=== PATIENT | female | born 1935 | race Caucasian/White ===

== ENCOUNTER 2018-08-05 23:37 | Inpatient (IN) | payer OTHER ==
--- NOTE | 2018-08-06 00:38 | PDOC ---
History of Present Illness - General Chief Complaint: Revisit, Lab Variance Stated Complaint: ABNORMAL LABS Time Seen by Provider: 08/06/18 00:38 History Source: Patient Exam Limitations: No Limitations - History of Present Illness Initial Comments: Urbano Hernandes is a very pleasant elderly, possibly demented 83 yo F resident of [facility] w a hx of recent UTI, AFIB, iron deficiency anemia, T2DM, hypothyroidism, Normal pressure hydrocephalus, and a stage 1 Sacral ulcer who presents to the ER via [facility] for an abnormal Hb value of 7.55. The patient appears pale in bed. The patient has no active complaints and seems mildly demented. She does not provide much history. She denies any pain. She does admit that she got sick yesterday and vomited 3 times. She says her vomit was "bleh" in color and had no blood or anything in it that looked green. The patient currently has a Line in her right wrist bc she is being treated for a UTI for ten days with meropenem 1 gram BID for an ESBL UTI. The patient denies having any chest pain, SOB, difficulty breathing. She denies vomiting blood, bloody diarrhea or blood in her stool. The patient denies having a headache, neck pain, blurry vision, or back pain. PCP: Dr. Ware PSH: Multiple left leg surgeries Allergies: Penicillins/strawberries Social Hx: Resident of [facility]. No current cigarette, alcohol, or drug usage. Advanced directives: DNR Past History - Past Medical History Allergies/Adverse Reactions: Allergies Allergy/AdvReac Type Severity Reaction Status Date / Time Penicillins Allergy Unknown Verified 08/06/18 02:14 strawberry Allergy Unknown Verified 08/06/18 02:13 Home Medications: Ambulatory Orders Acetaminophen 325 mg PO PRN 08/06/18 Ascorbic Acid [Vitamin C -] 500 mg PO DAILY 08/06/18 Calcium Carbonate/Vitamin D3 [Oyster Shell 500-Vit D3 200 Tb] 1 each PO DAILY Cholecalciferol (Vitamin D3) [Vitamin D3] 1,000 unit PO DAILY 08/06/18 Dextran 70/Hypromellose/Pf [Artificial Tears Drops] 1 each OP PRN 08/06/18 Diltiazem [Cardizem -] 30 mg PO QID 08/06/18 Docusate Sodium 200 mg PO DAILY 08/06/18 Ferrous Sulfate 325 mg PO DAILY 08/06/18 Heparin - 5,000 unit SQ BID 08/06/18 Levothyroxine [Synthroid -] 50 mcg PO DAILY 08/06/18 Meropenem-0.9% Sodium Chloride [Meropenem-0.9% NaCl 1 Gram/50] 1 gm IV BID 08/06 Montelukast Sodium [Singulair] 10 mg PO DAILY 08/06/18 - Suicide/Smoking/Psychosocial Hx Smoking History: Never smoked Have you smoked in the past 12 months: No Information on smoking cessation initiated: No Hx Alcohol Use: No Drug/Substance Use Hx: No Review of Systems - Review of Systems Able to Perform ROS?: No (Dementia) *Physical Exam - Vital Signs Last Vital Signs Temp Pulse Resp BP Pulse Ox 97.3 F L 90 18 143/62 100 08/05/18 23:49 08/05/18 23:49 08/05/18 23:49 08/05/18 23:49 08/05/18 23:49 - Physical Exam Comments: GENERAL: Appears pale. Not very well kept. Has a malodorous scent. No apparent distress. HEENT: Normocephalic, atraumatic. PERRL, EOM intact. CARDIOVASCULAR: Normal S1, S2. Regular rate and rhythm. PULMONARY: No evidence of respiratory distress. Lungs clear to auscultation bilaterally. No wheezing, rales or rhonchi. ABDOMEN: Soft, non-distended, non-tender. EXTREMITIES: Limited ROM in all four extremities. No gross deformities. Line in right wrist. SKIN: Warm, dry. No rash NEUROLOGICAL: No focal neurological deficits. ED Treatment Course - LABORATORY CBC & Chemistry Diagram: 08/06/18 01:33 08/06/18 01:33 Medical Decision Making - Medical Decision Making Urbano Hernandes is a very pleasant elderly, possibly demented 83 yo F resident of [facility] a hx of recent UTI, AFIB, iron deficiency anemia, T2DM, hypothyroidism, Normal pressure hydrocephalus, and a stage 1 Sacral ulcer who presents to the ER via [facility] for an abnormal Hb value of 7.55. The patient appears pale in bed. The patient has no active complaints and seems mildly demented. She does not provide much history. She denies any pain. She does admit that she got sick yesterday and vomited 3 times. She says her vomit was "bleh" in color and had no blood or anything in it that looked green. The patient currently has a Line in her right wrist bc she is being treated for a UTI for ten days with meropenem 1 gram BID for an ESBL UTI. Vital Signs Temp Pulse Resp BP Pulse Ox 97.3 F L 90 18 143/62 100 08/05/18 23:49 08/05/18 23:49 08/05/18 23:49 08/05/18 23:49 08/05/18 23:49 DDx IBNLT: Anemia - iron deficiency most likely, electrolyte/metabolic disturbance, medication side effect, PNA, UTI, ACS/Mi, Arrhythmia, GI bleed Plan: Labs, Urine, FOBT, CXR, EKG, Admit to hospital for anemia workup. Hb - 8 FOBT - positive - Giving patient one dose of protonix in ED. Signing out patient to Dr. Begum to complete admission to hospital *DC/Admit/Observation/Transfer Diagnosis at time of Disposition: Anemia, Occult GI bleeding - Discharge Dispostion Condition at time of disposition: Stable Decision to Admit order: Yes - Referrals Referrals: Jose Ware MD [Primary Care Provider] - - Patient Instructions - Post Discharge Activity
[2018-08-06] MEDS ORDERED: SODIUM CHLORIDE 1,000 ML IV STA (00:52)
[2018-08-06 01:57] LABS: BASO % 0.6 % (0-2.0); EOS % 4.7 % (0-4.5); HEMATOCRIT 25.6 % (32.4-45.2); LYMPH % 23.8 % (8-40); MCH 23.9 pg (25.7-33.7); MCHC 31.2 g/dl (32.0-36.0); MEAN CELL VOLUME 76.6 fl (80-96); MEAN PLT VOLUME 7.5 fl (7.5-11.1); MONO % 10.7 % (3.8-10.2); NEUT % 60.2 % (42.8-82.8); PLATELET COUNT 350 K/MM3 (134-434); RBC 3.34 M/mm3 (3.60-5.2); RDW 15.6 % (11.6-15.6); RETICULOCYTES 1.14 % (0.5-1.5); WHITE BLOOD COUNT 6.5 K/mm3 (4.0-10.0)
[2018-08-06 02:21] LABS: EPI CELLS 0.6 /HPF (0-5/HPF); HYALINE CASTS 2 /lpf (0-8); PH,URINE 6.5 (5.0-8.0); URINE APPEARANCE CLOUDY; URINE BACTERIA 13.9 /hpf (NEGATIVE); URINE BILIRUBIN NEGATIVE (NEGATIVE); URINE COLOR YELLOW; URINE GLUCOSE (UA) NEGATIVE (NEGATIVE); URINE KETONE NEGATIVE (NEGATIVE); URINE LEUK ESTERASE 2+ (NEGATIVE); URINE NITRITE NEGATIVE (NEGATIVE); URINE PROTEIN NEGATIVE (NEGATIVE); URINE RBC 4 /hpf (0-4); URINE UROBILINOGEN 0.2 mg/dL (0.2-1.0); URINE WBC 273 /hpf (0-5); YEAST REVIEW (NEGATIVE)
[2018-08-06 02:28] LABS: INR 1.08 (0.83-1.09); PROTHROMBIN TIME (PATIENT) 12.7 SEC (9.7-13.0)
[2018-08-06 02:32] LABS: ALBUMIN 3.2 g/dl (3.4-5.0); BILIRUBIN,TOTAL 0.4 mg/dL (0.2-1); BLOOD UREA NITROGEN 25.1 mg/dL (7-18); CALCIUM 8.9 mg/dL (8.5-10.1); CREATININE 1.2 mg/dL (0.55-1.3); POTASSIUM 4.4 mmol/L (3.5-5.1)
[2018-08-06 02:33] LABS: LDH 198 U/L (84-246)
[2018-08-06] MEDS ORDERED: PANTOPRAZOLE SODIUM 40 MG VIAL IVPUSH ONE (02:35)
[2018-08-06] MEDS ORDERED: MEROPENEM 1 GM in DEXTROSE 5%-WATER 100 ML IVPB ONE ×2 (02:47→14:00)
--- NOTE | 2018-08-06 02:47 | PDOC ---
Documentation entered by Samuel Leon SCRIBE, acting as scribe for Fernanda Santiago MD. Fernanda Santiago MD: This documentation has been prepared by the Carolyn astudillo Elijah, SCRIBE, under my direction and personally reviewed by me in its entirety. I confirm that the documentation accurately reflects all work, treatment, procedures, and medical decision making performed by me. Attending Attestation - Resident Resident Name: Jarod Horvath - ED Attending Attestation I have performed the following: I have examined & evaluated the patient, The case was reviewed & discussed with the resident, I agree w/resident's findings & plan - HPI HPI: 08/06/18 01:08 The patient is an 83 year old female with a significant past medical history of recent UTI, AFIB, iron deficiency anemia, T2DM, hypothyroidism, Normal pressure hydrocephalus, and a Sacral ulcer presents to the ED via [facility] with an abnormal Hb value of 7.5. The patient reports vomiting three times yesterday and mentioned that it was green in color. At this moment in time the patient has no complaints. Patient is currently being treated for a UTI with meropenem 1 gram BID from [facility]. history mostly obtained through residential records. Allergies: Penicillins/strawberries Past Medical History: as documented in EMR/HPI Social history: Lives in [facility] . No tobacco, ETOH or drug use. Surgical history: Left leg Surgeries Meds: as documented in EMR PMD: Dr. Ware 08/06/18 02:46 - Physicial Exam PE: 08/06/18 02:45 Agree with the resident's HPI and PE as documented in the electronic medical record. NAD, alert, oriented to person time and place. EOMI, PERRL, nl conjunctiva, anicteric; neck supple. lungs clear, RRR, abdomen soft nontender. Back nontender. COLBY x4, no focal neuro deficits. No peripheral edema. normal color for ethnicity, WWP. 08/06/18 02:45 - Medical Decision Making 08/06/18 02:46 See HPI for details. Prior notes reviewed, including admissions, discharges and consultations. Vital signs reviewed, wnl. laboratory results and imaging reviewed, basic labs and lytes wnl, notable for anemia, Hb 8 guaiac positive, ?occult GIB Cardiac panel_neg ED course no events, no bleeding admit for Anemia workup. meropenem given for the ESBL UTI 08/06/18 09:28
[2018-08-06] MEDS ORDERED: PANTOPRAZOLE SODIUM 40 MG/100 ML BAG IVPB ONE (02:52)
--- NOTE | 2018-08-06 03:55 | PDOC ---
*Physical Exam - Vital Signs Last Vital Signs Temp Pulse Resp BP Pulse Ox 97.3 F L 90 18 143/62 97 08/05/18 23:49 08/05/18 23:49 08/05/18 23:49 08/05/18 23:49 08/06/18 01:36 - Physical Exam General Appearance: Yes: Nourished, Appropriately Dressed, Other (Ple) HEENT: positive: EOMI, TANI Neck: positive: Supple Respiratory/Chest: positive: Lungs Clear, Normal Breath Sounds. negative: Accessory Muscle Use Cardiovascular: positive: Regular Rhythm, Regular Rate, S1, S2 Gastrointestinal/Abdominal: positive: Normal Bowel Sounds, Soft Extremity: negative: Swelling Neurologic: positive: inspector balance bridge II-XII NML intact, Alert ED Treatment Course - LABORATORY CBC & Chemistry Diagram: 08/06/18 01:33 08/06/18 01:33 - ADDITIONAL ORDERS Additional order review: Laboratory Results 08/06/18 08/06/18 08/06/18 02:05 01:33 01:33 PT with INR INR Sodium Potassium Chloride Carbon Dioxide Anion Gap BUN Creatinine Est GFR (CKD-EPI)AfAm Est GFR (CKD-EPI)NonAf Random Glucose Calcium Ferritin Total Bilirubin AST ALT Alkaline Phosphatase LD Total 198 Creatine Kinase 52 Troponin I < 0.02 Total Protein Albumin TSH 2.11 Urine Color Yellow Urine Appearance Cloudy Urine pH 6.5 Ur Specific [place] 1.018 Urine Protein Negative Urine Glucose (UA) Negative Urine Ketones Negative Urine Blood Negative Urine Nitrite Negative Urine Bilirubin Negative Urine Urobilinogen 0.2 Ur Leukocyte Esterase 2+ H Urine WBC (Auto) 273 Urine RBC (Auto) 4 Urine Casts (Auto) 2 U Epithel Cells (Auto) 0.6 Urine Bacteria (Auto) 13.9 Urine Yeast (Auto) Review A* Stool Occult Blood Blood Type O POSITIVE Antibody Screen Negative 08/06/18 08/06/18 08/06/18 01:33 01:33 01:33 PT with INR 12.70 INR 1.08 Sodium 141 Potassium 4.4 Chloride 109 H Carbon Dioxide 28 Anion Gap 4 L BUN 25.1 H Creatinine 1.2 Est GFR (CKD-EPI)AfAm 48.06 Est GFR (CKD-EPI)NonAf 41.47 Random Glucose 97 Calcium 8.9 Ferritin 12.9 Total Bilirubin 0.4 AST 151 H ALT 242 H Alkaline Phosphatase 98 LD Total Creatine Kinase Troponin I Total Protein 7.0 Albumin 3.2 L TSH Urine Color Urine Appearance Urine pH Ur Specific [place] Urine Protein Urine Glucose (UA) Urine Ketones Urine Blood Urine Nitrite Urine Bilirubin Urine Urobilinogen Ur Leukocyte Esterase Urine WBC (Auto) Urine RBC (Auto) Urine Casts (Auto) U Epithel Cells (Auto) Urine Bacteria (Auto) Urine Yeast (Auto) Stool Occult Blood Positive Blood Type Antibody Screen 08/06/18 01:33 RBC 3.34 L MCV 76.6 L MCHC 31.2 L RDW 15.6 MPV 7.5 Neutrophils % 60.2 Lymphocytes % 23.8 Monocytes % 10.7 H Eosinophils % 4.7 H Basophils % 0.6 - Medications Given in the ED: ED Medications Discontinued Medications Generic Name Dose Route Start Last Admin Trade Name Freq PRN Reason Stop Dose Admin Sodium Chloride 1,000 mls @ 1,000 mls/hr 08/06/18 00:52 08/06/18 02:09 Normal Saline - IV 08/06/18 01:51 1,000 mls/hr ASDIR STA Administration Pantoprazole Sodium 40 mg 08/06/18 02:35 08/06/18 02:55 Protonix Iv IVPUSH 08/06/18 02:36 40 mg ONCE ONE Administration Medical Decision Making - Medical Decision Making 08/06/18 03:51 83 y/o F resident of [facility] PMHx of recent UTI (on meropenem), AFib, iron deficiency anemia, T2DM, hypothyroidism, NPH, and stage 1 Sacral ulcer who presents for an abnormal Hgb Level (7.55). Pale on exam, mildly demented. VSS Stable. Found to be FOBT+, Hgb 8.0 Given 1 dose PPI, 1LNS Bolus. Sign out given to Dr. Young Chandler *DC/Admit/Observation/Transfer Diagnosis at time of Disposition: Anemia, Occult GI bleeding - Discharge Dispostion Condition at time of disposition: Stable - Referrals Referrals: Jose Ware MD [Primary Care Provider] - - Patient Instructions - Post Discharge Activity
--- NOTE | 2018-08-06 04:20 | HP ---
CHIEF COMPLAINT: Anemia. Sent from [place]. PCP: Dr Ware HISTORY OF PRESENT ILLNESS: Pt is an 83 y/o F with a significant past medical history of UTI, AFIB, iron deficiency anemia, T2DM, hypothyroidism, Normal pressure hydrocephalus, and a stage 1 Sacral ulcer who was sent from [facility] to [facility] due to 3 episodes of vomiting as well as a hemoglobin level of 7.55. Pt appears to be a poor historian and information is limited. Pt is reportedly being treated currently for an ESBL UTI; pt has a PICC line. Upon questioning patient, pt denies any chest pain, shortness of breath, or recent illness. PCP: Dr. Ware PSH: Multiple left leg surgeries Allergies: Penicillins/strawberries Social Hx: Resident of [facility]. No current cigarette, alcohol, or drug usage. ER course was notable for: (1) Hg of 8.0, 2 + Leuk Esterase (2) FOBT - positive (3) Allergies Penicillins Allergy (Unknown, Verified 08/06/18 02:14) strawberry Allergy (Unknown, Verified 08/06/18 02:13) HOME MEDICATIONS: Home Medications Medication Instructions Recorded Acetaminophen 325 mg PO PRN 08/06/18 Ascorbic Acid [Vitamin C -] 500 mg PO DAILY 08/06/18 Calcium Carbonate/Vitamin D3 1 each PO DAILY 08/06/18 [Oyster Shell 500-Vit D3 200 Tb] Cholecalciferol (Vitamin D3) 1,000 unit PO DAILY 08/06/18 [Vitamin D3] Dextran 70/Hypromellose/Pf 1 each OP PRN 08/06/18 [Artificial Tears Drops] Diltiazem [Cardizem -] 30 mg PO QID 08/06/18 Docusate Sodium 200 mg PO DAILY 08/06/18 Ferrous Sulfate 325 mg PO DAILY 08/06/18 Heparin - 5,000 unit SQ BID 08/06/18 Levothyroxine [Synthroid -] 50 mcg PO DAILY 08/06/18 Meropenem-0.9% Sodium Chloride 1 gm IV BID 08/06/18 [Meropenem-0.9% NaCl 1 Gram/50] Montelukast Sodium [Singulair] 10 mg PO DAILY 08/06/18 REVIEW OF SYSTEMS CONSTITUTIONAL: Absent: fever, chills, diaphoresis, generalized weakness, malaise, loss of appetite, weight change HEENT: Absent: rhinorrhea, nasal congestion, throat pain, throat swelling, difficulty swallowing, mouth swelling, ear pain, eye pain, visual changes CARDIOVASCULAR: Absent: chest pain, syncope, palpitations, irregular heart rate, lightheadedness , peripheral edema RESPIRATORY: Absent: cough, shortness of breath, dyspnea with exertion, orthopnea, wheezing, stridor, hemoptysis GASTROINTESTINAL: Absent: abdominal pain, abdominal distension, nausea, vomiting, diarrhea, constipation, melena, hematochezia GENITOURINARY: Absent: dysuria, frequency, urgency, hesitancy, hematuria, flank pain, genital pain MUSCULOSKELETAL: Absent: myalgia, arthralgia, joint swelling, back pain, neck pain SKIN: Absent: rash, itching, pallor HEMATOLOGIC/IMMUNOLOGIC: Absent: easy bleeding, easy bruising, lymphadenopathy, frequent infections ENDOCRINE: Absent: unexplained weight gain, unexplained weight loss, heat intolerance, cold intolerance NEUROLOGIC: Absent: headache, focal weakness or paresthesias, dizziness, unsteady gait, seizure, mental status changes, bladder or bowel incontinence PSYCHIATRIC: Absent: anxiety, depression, suicidal or homicidal ideation, hallucinations. PHYSICAL EXAMINATION Vital Signs - 24 hr 08/05/18 08/06/18 23:49 01:36 Temperature 97.3 F L Pulse Rate 90 Respiratory 18 Rate Blood Pressure 143/62 O2 Sat by Pulse 100 97 Oximetry (%) GENERAL: Resting in bed NAD HEAD: Normal with no signs of trauma. EYES: EOMI Sclera Clear . LUNGS: CTAB HEART: RRR ABDOMEN: Nontender to palpation, Soft UPPER EXTREMITIES: PICC Line RUE LOWER EXTREMITIES: No CCE PSYCHIATRIC: Cooperative. Good eye contact. Appropriate mood and affect. Laboratory Results - last 24 hr 08/06/18 08/06/18 08/06/18 01:33 01:33 01:33 WBC 6.5 RBC 3.34 L Hgb 8.0 L Hct 25.6 L MCV 76.6 L MCH 23.9 L MCHC 31.2 L RDW 15.6 Plt Count 350 MPV 7.5 Absolute Neuts (auto) 3.9 Neutrophils % 60.2 Lymphocytes % 23.8 Monocytes % 10.7 H Eosinophils % 4.7 H Basophils % 0.6 Nucleated RBC % 0 Retic Count 1.14 PT with INR 12.70 INR 1.08 Sodium Potassium Chloride Carbon Dioxide Anion Gap BUN Creatinine Est GFR (CKD-EPI)AfAm Est GFR (CKD-EPI)NonAf Random Glucose Calcium Ferritin Total Bilirubin AST ALT Alkaline Phosphatase LD Total Creatine Kinase Troponin I Total Protein Albumin TSH Urine Color Urine Appearance Urine pH Ur Specific [place] Urine Protein Urine Glucose (UA) Urine Ketones Urine Blood Urine Nitrite Urine Bilirubin Urine Urobilinogen Ur Leukocyte Esterase Urine WBC (Auto) Urine RBC (Auto) Urine Casts (Auto) U Epithel Cells (Auto) Urine Bacteria (Auto) Urine Yeast (Auto) Stool Occult Blood Positive Blood Type Antibody Screen 08/06/18 08/06/18 08/06/18 01:33 01:33 01:33 WBC RBC Hgb Hct MCV MCH MCHC RDW Plt Count MPV Absolute Neuts (auto) Neutrophils % Lymphocytes % Monocytes % Eosinophils % Basophils % Nucleated RBC % Retic Count PT with INR INR Sodium 141 Potassium 4.4 Chloride 109 H Carbon Dioxide 28 Anion Gap 4 L BUN 25.1 H Creatinine 1.2 Est GFR (CKD-EPI)AfAm 48.06 Est GFR (CKD-EPI)NonAf 41.47 Random Glucose 97 Calcium 8.9 Ferritin 12.9 Total Bilirubin 0.4 AST 151 H ALT 242 H Alkaline Phosphatase 98 LD Total 198 Creatine Kinase 52 Troponin I < 0.02 Total Protein 7.0 Albumin 3.2 L TSH 2.11 Urine Color Urine Appearance Urine pH Ur Specific [place] Urine Protein Urine Glucose (UA) Urine Ketones Urine Blood Urine Nitrite Urine Bilirubin Urine Urobilinogen Ur Leukocyte Esterase Urine WBC (Auto) Urine RBC (Auto) Urine Casts (Auto) U Epithel Cells (Auto) Urine Bacteria (Auto) Urine Yeast (Auto) Stool Occult Blood Blood Type O POSITIVE Antibody Screen Negative 08/06/18 02:05 WBC RBC Hgb Hct MCV MCH MCHC RDW Plt Count MPV Absolute Neuts (auto) Neutrophils % Lymphocytes % Monocytes % Eosinophils % Basophils % Nucleated RBC % Retic Count PT with INR INR Sodium Potassium Chloride Carbon Dioxide Anion Gap BUN Creatinine Est GFR (CKD-EPI)AfAm Est GFR (CKD-EPI)NonAf Random Glucose Calcium Ferritin Total Bilirubin AST ALT Alkaline Phosphatase LD Total Creatine Kinase Troponin I Total Protein Albumin TSH Urine Color Yellow Urine Appearance Cloudy Urine pH 6.5 Ur Specific [place] 1.018 Urine Protein Negative Urine Glucose (UA) Negative Urine Ketones Negative Urine Blood Negative Urine Nitrite Negative Urine Bilirubin Negative Urine Urobilinogen 0.2 Ur Leukocyte Esterase 2+ H Urine WBC (Auto) 273 Urine RBC (Auto) 4 Urine Casts (Auto) 2 U Epithel Cells (Auto) 0.6 Urine Bacteria (Auto) 13.9 Urine Yeast (Auto) Review A* Stool Occult Blood Blood Type Antibody Screen ASSESSMENT/PLAN: Pt is an 83 y/o F with a significant past medical history of UTI, AFIB, iron deficiency anemia, T2DM, hypothyroidism, Normal pressure hydrocephalus, and a stage 1 Sacral ulcer who was sent from [facility] to [facility] due to 3 episodes of vomiting as well as a hemoglobin level of 7.55. #Anemia 2/2 indeterminate etiology -Hgb 8.0 -FOBT + -G.I Consult -Iron studies including TIBC, Ferritin, Reticulocyte count -CTAP to look for possible GI source of bleed in light of + FOBT #ESBL UTI Continue Merrem #Iron Def Anemia C/w Ferrous Sulfate #Hypothyroidism C/w Synthroid home dose #Afib C/w Diltiazem. Pt not on any AC. #FEN LR@42cc/hr Monitor Electrolytes NPO #DVT ppx: SCDs #ispo: Med-Surg Pt endorses she was recently hospitalized at [facility]. Day team to obtain medical records to compare H/H. Visit type - Emergency Visit Emergency Visit: Yes ED Registration Date: 08/06/18 Care time: The patient presented to the Emergency Department on the above date and was hospitalized for further evaluation of their emergent condition. - New Patient This patient is new to me today: Yes Date on this admission: 08/06/18 - Critical Care Critical Care patient: No
[2018-08-06] MEDS ORDERED: ARTIFICIAL TEARS (POLYVINYL ALCOHOL) OPTH DROPS OU PRN (04:30)
[2018-08-06] MEDS: LACTATED RINGERS SOLUTION 1,000 ML/1,000 ML INFUS.BAG IV SCH (04:46)
--- NOTE | 2018-08-06 04:55 | PN ---
Teaching Attending Note Name of Resident: Young Chandler ATTENDING PHYSICIAN STATEMENT I saw and evaluated the patient. I reviewed the resident's note and discussed the case with the resident. I agree with the resident's findings and plan as documented. SUBJECTIVE: Patient is an 83 year old woman from [facility] with PMH of Dementia , recent ?ESBL UTI, Afib, Penicilin allergy, Iron deficiency anemia, NIDDM, Hypothyroidism, Normal pressure hydrocephalus, and a stage 1 Sacral Decubitus Ulcer who presents with hemoglobin of 7.55. The patient appears pale in bed. The patient has no active complaints and seems mildly demented. She does not provide much history. She denies any pain. She does admit that she got sick yesterday and vomited 3 times. She says her vomit was "bleh" in color and had no blood or anything in it that looked green. The patient currently has a PICC line in her right wrist - being treated for a UTI for ten days with Meropenem 1 gram BID for an ESBL UTI - treatment was started at [facility]. Patient denies having any chest pain, SOB, difficulty breathing. She denies vomiting blood, bloody diarrhea or blood in her stool. The patient denies having a headache, neck pain, blurry vision, or back pain. OBJECTIVE: Alert Vital Signs Period Temp Pulse Resp BP Sys/Castro Pulse Ox Last 24 Hr 97.3 F 90 18 143/62 97-100 HEENT: No Jaundice, eye redness or discharge, PERRLA, EOMI. Normocephalic, atraumatic. External ears are normal and hearing is grossly intact. No nasal discharge. Neck: Supple, nontender. No palpable adenopathy or thyromegaly. No JVD Chest: Good effort. Clear to auscultation and percussion. Heart: Regular. No S3, rub or murmur Abdomen: Not distended, soft, nontender and no HSM. No rebound or guarding. Normal bowel sounds. Ext: Peripheral pulses intact. No leg edema. Skin: Warm and dry. No petechiae, rash or ecchymosis. Stage 1 sacral decubitus ulcer. Neuro: Alert. Oriented to person. CN 2-12 grossly intact. Sensation grossly intact in all four extremities and DTR are symmetric. Psych: Appropriate mood and affect. Current Medications Generic Name Dose Route Start Last Admin Trade Name Freq PRN Reason Stop Dose Admin Artificial Tears 1 drop 08/06/18 04:30 Artificial Tears OU PRN PRN DRY EYES Ascorbic Acid 500 mg 08/06/18 10:00 Vitamin C - PO DAILY [facility] Calcium Carbonate/Cholecalciferol 1 tab 08/06/18 10:00 Os-Brett 500+D - PO DAILY [facility] Cholecalciferol 1,000 unit 08/06/18 10:00 Vitamin D3 - PO DAILY [facility] Diltiazem HCl 30 mg 08/06/18 06:00 Cardizem - PO Q6HPO [facility] Docusate Sodium 200 mg 08/06/18 10:00 Colace - PO DAILY [facility] Ferrous Sulfate 325 mg 08/06/18 10:00 Feosol - PO DAILY [facility] Lactated Ringer's 1,000 ml in 1,000 mls @ 42 mls/hr 08/06/18 04:30 08/06/18 04:46 Lactated Ringers Solution IV 42 mls/hr ASDIR [facility] Administration Meropenem 1 gm/ Dextrose 100 mls @ 200 mls/hr 08/06/18 14:00 IVPB 08/06/18 14:29 ONCE ONE Levothyroxine Sodium 50 mcg 08/06/18 07:00 Synthroid - PO DAILY@0700 [facility] Montelukast Sodium 10 mg 08/06/18 22:00 Singulair - PO HS [facility] Non-Formulary Medication 1 gm 08/06/18 10:00 Meropenem-0.9% Sodium Chloride [Meropenem-0.9% Nacl 1 Gram/50] IV BID [facility] Home Medications Medication Instructions Recorded Acetaminophen 325 mg PO PRN 08/06/18 Ascorbic Acid [Vitamin C -] 500 mg PO DAILY 08/06/18 Calcium Carbonate/Vitamin D3 1 each PO DAILY 08/06/18 [Oyster Shell 500-Vit D3 200 Tb] Cholecalciferol (Vitamin D3) 1,000 unit PO DAILY 08/06/18 [Vitamin D3] Dextran 70/Hypromellose/Pf 1 each OP PRN 08/06/18 [Artificial Tears Drops] Diltiazem [Cardizem -] 30 mg PO QID 08/06/18 Docusate Sodium 200 mg PO DAILY 08/06/18 Ferrous Sulfate 325 mg PO DAILY 08/06/18 Heparin - 5,000 unit SQ BID 08/06/18 Levothyroxine [Synthroid -] 50 mcg PO DAILY 08/06/18 Meropenem-0.9% Sodium Chloride 1 gm IV BID 08/06/18 [Meropenem-0.9% NaCl 1 Gram/50] Montelukast Sodium [Singulair] 10 mg PO DAILY 08/06/18 Abnormal Lab Results 08/06/18 08/06/18 08/06/18 01:33 01:33 02:05 RBC 3.34 L Hgb 8.0 L Hct 25.6 L MCV 76.6 L MCH 23.9 L MCHC 31.2 L Monocytes % 10.7 H Eosinophils % 4.7 H Chloride 109 H Anion Gap 4 L BUN 25.1 H AST 151 H ALT 242 H Albumin 3.2 L Ur Leukocyte Esterase 2+ H Urine Yeast (Auto) Review A* ASSESSMENT AND PLAN: 1. Anemia due to ?GI bleeding - No vomiting since arrival in the ER. Rectal exam revealed guaiac positive stool. Will keep her NPO, get CT abdomen/pelvis and treat with IV protonix and IV NS. Consult GI, type and hold PRBC, monitor HCT q 6 hours, confirm iron deficiency and treat with IV iron at the appropriate time. Continue IV Meropenem for persistent UTI, get urine culture, get records from [facility] (?discharge hematocrit; ?urine culture report) and trend LFTs. Continue comprehensive care of all her comorbid conditions including decubitus ulcer care and Afib. Consult ID. 2. Hypoalbuminemia - Possibly due to combined effects of malnutrition and inflammation associated with comorbid chronic conditions. Will ensure adequate dietary protein intake and also consult warp bleaching vat tender. 3. DM For now, we will hold the home diabetes drugs and implement sliding scale insulin regimen. Provide comprehensive diabetes care with patient teaching and counseling about the importance of adherence to prescribed diabetes regimen, euglycemia, eye care and foot care. 4. Obesity Counseled on the risks associated with obesity. Will provide patient all the necessary assistance, counseling and positive reinforcement to facilitate weight loss. Consult warp bleaching vat tender. 5. Hypertension - Restart suitable outpatient antihypertensive drugs when clinically appropriate. Revise regimen to ensure good BP control. Nonpharmacologic measures to control hypertension like weight loss, salt restriction and exercise discussed. 6. DVT prophylaxis - SCD 7. Advance directives - DNR
[2018-08-06] MEDS ORDERED: dilTIAZem HCL 30 MG TABLET (FP) ONE (05:45)
[2018-08-06] MEDS: dilTIAZem HCL 30 MG TABLET (FP) PO SCH ×3 (05:49→17:57)
[2018-08-06 06:07] LABS: CALCIUM 8.3 mg/dL (8.5-10.1); CREATININE 1.2 mg/dL (0.55-1.3); MAGNESIUM 2.2 mg/dL (1.8-2.4); PHOSPHOROUS 2.9 mg/dL (2.5-4.9)
[2018-08-06 06:13] LABS: BASO % 0.3 % (0-2.0); EOS % 5.8 % (0-4.5); HEMATOCRIT 21.8 % (32.4-45.2); LYMPH % 22.6 % (8-40); MCHC 31.8 g/dl (32.0-36.0); MEAN CELL VOLUME 75.4 fl (80-96); MEAN PLT VOLUME 7.5 fl (7.5-11.1); MONO % 13.5 % (3.8-10.2); NEUT % 57.8 % (42.8-82.8); PLATELET COUNT 330 K/MM3 (134-434); RDW 15.9 % (11.6-15.6); RETICULOCYTES 1.09 % (0.5-1.5); WHITE BLOOD COUNT 6.3 K/mm3 (4.0-10.0)
[2018-08-06] MEDS: LEVOTHYROXINE NA 50 MCG TABLET (FP) PO SCH (06:28)
[2018-08-06 06:31] LABS: HEMOGLOBIN 6.9 GM/dL (10.7-15.3)
[2018-08-06 07:41] VITALS: BMI 21.9
--- NOTE | 2018-08-06 10:35 | EKG ---
Test Reason : Blood Pressure : / mmHG Vent. Rate : 079 BPM Atrial Rate : 079 BPM P-R Int : 156 ms QRS Dur : 072 ms QT Int : 404 ms P-R-T Axes : 082 078 077 degrees QTc Int : 463 ms NORMAL SINUS RHYTHM NO PREVIOUS ECGS AVAILABLE Confirmed by CINDY BOWLING MD ([id number]) on 08/06/2018 10:34:48 AM Referred By: Confirmed By:CINDY BOWLING MD
[2018-08-06] MEDS: CHOLECALCIFEROL (VIT D3) 1,000 UNIT (25 MCG) TABLET PO SCH (11:18)
[2018-08-06] MEDS: ASCORBIC ACID 500 MG TABLET (FP) PO SCH (11:18)
[2018-08-06] MEDS: FERROUS SO4 325 MG TABLET (FP) PO SCH (11:18)
[2018-08-06] MEDS: CALCIUM 500MG/VIT-D 200 UNITS COMBO TABLET (FP) PO SCH (11:18)
[2018-08-06] MEDS: DOCUSATE SODIUM 100 MG CAPSULE (FP) PO SCH (11:18)
--- NOTE | 2018-08-06 12:02 | CON.GI ---
Consult Consult Specialty:: GI Referred by:: Dr Jarquin Reason for Consultation:: iron deficiency anemia - History of Present Illness Chief Complaint: 83 F with iron deficiency anemia, vomited in NH. 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) Cardio/Vascular: Yes: AFIB Heme/Onc: Yes: Anemia (states has been anemic for years) - Alcohol/Substance Use Hx Alcohol Use: No - Smoking History Smoking history: Never smoked Have you smoked in the past 12 months: No Home Medications - Allergies Allergies/Adverse Reactions: Allergies Allergy/AdvReac Type Severity Reaction Status Date / Time Penicillins Allergy Unknown Verified 08/06/18 02:14 strawberry Allergy Unknown Verified 08/06/18 02:13 - Home Medications Home Medications: Ambulatory Orders Acetaminophen 325 mg PO PRN 08/06/18 Ascorbic Acid [Vitamin C -] 500 mg PO DAILY 08/06/18 Calcium Carbonate/Vitamin D3 [Oyster Shell 500-Vit D3 200 Tb] 1 each PO DAILY Cholecalciferol (Vitamin D3) [Vitamin D3] 1,000 unit PO DAILY 08/06/18 Dextran 70/Hypromellose/Pf [Artificial Tears Drops] 1 each OP PRN 08/06/18 Diltiazem [Cardizem -] 30 mg PO QID 08/06/18 Docusate Sodium 200 mg PO DAILY 08/06/18 Ferrous Sulfate 325 mg PO DAILY 08/06/18 Heparin - 5,000 unit SQ BID 08/06/18 Levothyroxine [Synthroid -] 50 mcg PO DAILY 08/06/18 Meropenem-0.9% Sodium Chloride [Meropenem-0.9% NaCl 1 Gram/50] 1 gm IV BID 08/06 Montelukast Sodium [Singulair] 10 mg PO DAILY 08/06/18 Physical Exam-GI Vital Signs: Vital Signs Temperature 97.8 F 08/06/18 07:00 Pulse Rate 80 08/06/18 07:00 Respiratory Rate 20 08/06/18 07:00 Blood Pressure 157/78 08/06/18 07:00 O2 Sat by Pulse Oximetry (%) 95 08/06/18 07:01 Constitutional: Yes: Well Nourished ...Rectal Exam: Yes: Sphincter Tone Poor (Soft stool in rectum, no masses) Neurological: Yes: Alert Psychiatric: Yes: Alert Labs: CBC, BMP 08/06/18 05:35 08/06/18 05:35 INR, PTT INR 1.08 (0.83-1.09) 08/06/18 01:33 Imaging - Results Cat Scan: Image Reviewed (Large amount of stool in rectum. Distended bladder, bilateral ovarian cysts.) Assessment/Plan Microcytic anemia with low ferritin. Pt says she has never had a colonoscopy or EGD. She is currently refusing GI workup. I explained to her that we believe she is losing a small amount of blood daily in her gut and asked her to reconsider whether she will allow GI investigation.
--- NOTE | 2018-08-06 12:56 | PN ---
Progress Note, Physician Chief Complaint: Ms Hernandes says she is feeling well and is without complaint. Denies cp and sob. Said she was having nausea and vomiting at [facility] but this has currently resolved. - Current Medication List Current Medications: Active Medications Artificial Tears (Artificial Tears) 1 drop OU PRN PRN PRN Reason: DRY EYES Ascorbic Acid (Vitamin C -) 500 mg PO DAILY [facility] Last Admin: 08/06/18 11:18 Dose: 500 mg Calcium Carbonate/Cholecalciferol (Os-Brett 500+D -) 1 tab PO DAILY [facility] Last Admin: 08/06/18 11:18 Dose: 1 tab Cholecalciferol (Vitamin D3 -) 1,000 unit PO DAILY [facility] Last Admin: 08/06/18 11:18 Dose: 1,000 unit Diltiazem HCl (Cardizem -) 30 mg PO Q6HPO [facility] Last Admin: 08/06/18 11:18 Dose: 30 mg Docusate Sodium (Colace -) 200 mg PO DAILY [facility] Last Admin: 08/06/18 11:18 Dose: 200 mg Ferrous Sulfate (Feosol -) 325 mg PO DAILY [facility] Last Admin: 08/06/18 11:18 Dose: 325 mg Lactated Ringer's (Lactated Ringers Solution) 1,000 ml in 1,000 mls @ 42 mls/ hr IV ASDIR [facility] Last Admin: 08/06/18 04:46 Dose: 42 mls/hr Meropenem 1 gm/ Dextrose 100 mls @ 200 mls/hr IVPB ONCE ONE Stop: 08/06/18 14:29 Levothyroxine Sodium (Synthroid -) 50 mcg PO DAILY@0700 [facility] Last Admin: 08/06/18 06:28 Dose: 50 mcg Meropenem (Merrem (Restricted To Id) -) 1 gm IVPB BID [facility] Montelukast Sodium (Singulair -) 10 mg PO HS [facility] - Objective Vital Signs: Vital Signs Temperature 36.6 C 08/06/18 10:00 Pulse Rate 79 08/06/18 10:00 Respiratory Rate 18 08/06/18 10:00 Blood Pressure 138/46 L 08/06/18 10:00 O2 Sat by Pulse Oximetry (%) 98 08/06/18 09:00 Constitutional: Yes: Well Nourished, No Distress, Calm Cardiovascular: Yes: Regular Rate and Rhythm. No: Gallop, Murmur, Rub Respiratory: Yes: Regular, CTA Bilaterally. No: Rales, Rhonchi, Wheezes Gastrointestinal: Yes: Normal Bowel Sounds, Soft. No: Distention, Tenderness Extremities: Yes: WNL Edema: No Labs: CBC, BMP 08/06/18 05:35 08/06/18 05:35 INR, PTT INR 1.08 (0.83-1.09) 08/06/18 01:33 Problem List - Problems (1) Anemia Assessment/Plan: -patient with history of iron deficiency anemia coming in with worsening anemia -concern for GIB with acute blood loss anemia -transfusing 1 unit -recheck cbc this afternoon -protonix 40mg IV bid -patient currently declining GI intervention Code(s): D64.9 - ANEMIA, UNSPECIFIED Qualifiers: Anemia type: other cause Other causes of anemia: acute posthemorrhagic Qualified Code(s): D62 - Acute posthemorrhagic anemia (2) Occult GI bleeding Assessment/Plan: -as above Code(s): R19.5 - OTHER FECAL ABNORMALITIES (3) UTI (urinary tract infection) Assessment/Plan: -h/o ESBL -continue merrem -ID consult Code(s): N39.0 - URINARY TRACT INFECTION, SITE NOT SPECIFIED (4) Afib Assessment/Plan: -continue diltiazem -no AC secondary to anemia Code(s): I48.91 - UNSPECIFIED ATRIAL FIBRILLATION Qualifiers: Atrial fibrillation type: paroxysmal Qualified Code(s): I48.0 - Paroxysmal atrial fibrillation (5) Hypothyroid Assessment/Plan: -continue synthroid Code(s): E03.9 - HYPOTHYROIDISM, UNSPECIFIED (6) Ovarian cyst Assessment/Plan: -gynecology consulted Code(s): N83.209 - UNSPECIFIED OVARIAN CYST, UNSPECIFIED SIDE Qualifiers: Laterality: right Qualified Code(s): N83.201 - Unspecified ovarian cyst, right side
--- NOTE | 2018-08-06 14:20 | CON.ID ---
Consult - History of Present Illness History of Present Illness: 83 y.o. female [place] resident with PMH of DM, AFIB , NPH, hypothyroidism, and recent ESBL + UTI on Meropenem presents for low Hgb and 3 episodes of vomiting. She states she was at [facility] recently and discharged on antibiotics. Does not recall length of stay. In the ER pt was noted to have Hgb of 8 which is now Hgb of 6.2 and currently receiving PRBC transfusion. No leukocytosis or fever noted. She denies any recent SOB/cough, abd pain/nausea, urinary f/u/d, fever/chills and states she feels well. She has no specific complaints. 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) Cardio/Vascular: Yes: AFIB Heme/Onc: Yes: Anemia Endocrine: Yes: Diabetes Mellitus, Hypothyroidism - Alcohol/Substance Use Hx Alcohol Use: No - Smoking History Smoking history: Never smoked Have you smoked in the past 12 months: No - Social History Usual Living Arrangement: Intermediate History of Recent Travel: No Home Medications - Allergies Allergies/Adverse Reactions: Allergies Allergy/AdvReac Type Severity Reaction Status Date / Time Penicillins Allergy Unknown Verified 08/06/18 02:14 strawberry Allergy Unknown Verified 08/06/18 02:13 - Home Medications Home Medications: Ambulatory Orders Acetaminophen 325 mg PO PRN 08/06/18 Ascorbic Acid [Vitamin C -] 500 mg PO DAILY 08/06/18 Calcium Carbonate/Vitamin D3 [Oyster Shell 500-Vit D3 200 Tb] 1 each PO DAILY Cholecalciferol (Vitamin D3) [Vitamin D3] 1,000 unit PO DAILY 08/06/18 Dextran 70/Hypromellose/Pf [Artificial Tears Drops] 1 each OP PRN 08/06/18 Diltiazem [Cardizem -] 30 mg PO QID 08/06/18 Docusate Sodium 200 mg PO DAILY 08/06/18 Ferrous Sulfate 325 mg PO DAILY 08/06/18 Heparin - 5,000 unit SQ BID 08/06/18 Levothyroxine [Synthroid -] 50 mcg PO DAILY 08/06/18 Meropenem-0.9% Sodium Chloride [Meropenem-0.9% NaCl 1 Gram/50] 1 gm IV BID 08/06 Montelukast Sodium [Singulair] 10 mg PO DAILY 08/06/18 Review of Systems - Review of Systems Constitutional: reports: No Symptoms Eyes: reports: No Symptoms HENT: reports: No Symptoms Neck: reports: No Symptoms Cardiovascular: reports: No Symptoms Respiratory: reports: No Symptoms Gastrointestinal: reports: No Symptoms Genitourinary: reports: No Symptoms Musculoskeletal: reports: No Symptoms Integumentary: reports: No Symptoms Neurological: reports: No Symptoms Hematology/Lymphatic: reports: No Symptoms Psychiatric: reports: No Symptoms Physical Exam Vital Signs: Vital Signs Temperature 98 F 08/06/18 10:00 Pulse Rate 79 08/06/18 10:00 Respiratory Rate 18 08/06/18 10:00 Blood Pressure 138/46 L 08/06/18 10:00 O2 Sat by Pulse Oximetry (%) 98 08/06/18 09:00 Constitutional: Yes: No Distress, Calm Eyes: Yes: Conjunctiva Clear, EOM Intact HENT: Yes: Atraumatic Neck: Yes: Supple Cardiovascular: Yes: Regular Rate and Rhythm Respiratory: Yes: CTA Bilaterally Gastrointestinal: Yes: Normal Bowel Sounds, Soft Renal/: Yes: WNL Musculoskeletal: Yes: WNL Extremities: Yes: WNL Integumentary: Yes: WNL Neurological: Yes: Alert, Confusion (mildly) Labs: CBC, BMP 08/06/18 05:35 08/06/18 05:35 Laboratory Tests 08/06/18 08/06/18 08/06/18 01:33 01:33 01:33 WBC 6.5 RBC 3.34 L Hgb 8.0 L Hct 25.6 L MCV 76.6 L MCH 23.9 L MCHC 31.2 L RDW 15.6 Plt Count 350 MPV 7.5 Absolute Neuts (auto) 3.9 Neutrophils % 60.2 Lymphocytes % 23.8 Monocytes % 10.7 H Eosinophils % 4.7 H Basophils % 0.6 Nucleated RBC % 0 Retic Count 1.14 PT with INR 12.70 INR 1.08 Sodium Potassium Chloride Carbon Dioxide Anion Gap BUN Creatinine Est GFR (CKD-EPI)AfAm Est GFR (CKD-EPI)NonAf Random Glucose Calcium Phosphorus Magnesium Ferritin Total Bilirubin AST ALT Alkaline Phosphatase LD Total Creatine Kinase Troponin I Total Protein Albumin TSH Urine Color Urine Appearance Urine pH Ur Specific Nicholson Urine Protein Urine Glucose (UA) Urine Ketones Urine Blood Urine Nitrite Urine Bilirubin Urine Urobilinogen Ur Leukocyte Esterase Urine WBC (Auto) Urine RBC (Auto) Urine Casts (Auto) U Epithel Cells (Auto) Urine Bacteria (Auto) Urine Yeast (Auto) Stool Occult Blood Positive Blood Type Antibody Screen Crossmatch 08/06/18 08/06/18 08/06/18 01:33 01:33 01:33 WBC RBC Hgb Hct MCV MCH MCHC RDW Plt Count MPV Absolute Neuts (auto) Neutrophils % Lymphocytes % Monocytes % Eosinophils % Basophils % Nucleated RBC % Retic Count PT with INR INR Sodium 141 Potassium 4.4 Chloride 109 H Carbon Dioxide 28 Anion Gap 4 L BUN 25.1 H Creatinine 1.2 Est GFR (CKD-EPI)AfAm 48.06 Est GFR (CKD-EPI)NonAf 41.47 Random Glucose 97 Calcium 8.9 Phosphorus Magnesium Ferritin 12.9 Total Bilirubin 0.4 AST 151 H ALT 242 H Alkaline Phosphatase 98 LD Total 198 Creatine Kinase 52 Troponin I < 0.02 Total Protein 7.0 Albumin 3.2 L TSH 2.11 Urine Color Urine Appearance Urine pH Ur Specific Nicholson Urine Protein Urine Glucose (UA) Urine Ketones Urine Blood Urine Nitrite Urine Bilirubin Urine Urobilinogen Ur Leukocyte Esterase Urine WBC (Auto) Urine RBC (Auto) Urine Casts (Auto) U Epithel Cells (Auto) Urine Bacteria (Auto) Urine Yeast (Auto) Stool Occult Blood Blood Type O POSITIVE Antibody Screen Negative Crossmatch See Detail 08/06/18 08/06/18 08/06/18 02:05 05:35 05:35 WBC 6.3 RBC 2.90 L Hgb 6.9 L* Hct 21.8 L MCV 75.4 L MCH 24.0 L MCHC 31.8 L RDW 15.9 H Plt Count 330 MPV 7.5 Absolute Neuts (auto) 3.6 Neutrophils % 57.8 Lymphocytes % 22.6 Monocytes % 13.5 H Eosinophils % 5.8 H Basophils % 0.3 Nucleated RBC % 0 Retic Count 1.09 PT with INR INR Sodium Potassium Chloride Carbon Dioxide Anion Gap BUN Creatinine Est GFR (CKD-EPI)AfAm Est GFR (CKD-EPI)NonAf Random Glucose Calcium Phosphorus Magnesium Ferritin Total Bilirubin AST ALT Alkaline Phosphatase LD Total Creatine Kinase Troponin I Total Protein Albumin TSH Urine Color Yellow Urine Appearance Cloudy Urine pH 6.5 Ur Specific Nicholson 1.018 Urine Protein Negative Urine Glucose (UA) Negative Urine Ketones Negative Urine Blood Negative Urine Nitrite Negative Urine Bilirubin Negative Urine Urobilinogen 0.2 Ur Leukocyte Esterase 2+ H Urine WBC (Auto) 273 Urine RBC (Auto) 4 Urine Casts (Auto) 2 U Epithel Cells (Auto) 0.6 Urine Bacteria (Auto) 13.9 Urine Yeast (Auto) Review A* Stool Occult Blood Blood Type O POSITIVE Antibody Screen Crossmatch 08/06/18 05:35 WBC RBC Hgb Hct MCV MCH MCHC RDW Plt Count MPV Absolute Neuts (auto) Neutrophils % Lymphocytes % Monocytes % Eosinophils % Basophils % Nucleated RBC % Retic Count PT with INR INR Sodium 142 Potassium 4.0 Chloride 112 H Carbon Dioxide 28 Anion Gap 3 L BUN 23.0 H Creatinine 1.2 Est GFR (CKD-EPI)AfAm 48.06 Est GFR (CKD-EPI)NonAf 41.47 Random Glucose 99 Calcium 8.3 L Phosphorus 2.9 Magnesium 2.2 Ferritin Total Bilirubin AST ALT Alkaline Phosphatase LD Total Creatine Kinase Troponin I Total Protein Albumin TSH Urine Color Urine Appearance Urine pH Ur Specific Nicholson Urine Protein Urine Glucose (UA) Urine Ketones Urine Blood Urine Nitrite Urine Bilirubin Urine Urobilinogen Ur Leukocyte Esterase Urine WBC (Auto) Urine RBC (Auto) Urine Casts (Auto) U Epithel Cells (Auto) Urine Bacteria (Auto) Urine Yeast (Auto) Stool Occult Blood Blood Type Antibody Screen Crossmatch Imaging - Results Chest X-ray: Pending Cat Scan: Pending Ultrasound: Pending Problem List - Problems (1) Afib Code(s): I48.91 - UNSPECIFIED ATRIAL FIBRILLATION Qualifiers: Atrial fibrillation type: paroxysmal Qualified Code(s): I48.0 - Paroxysmal atrial fibrillation (2) Anemia Code(s): D64.9 - ANEMIA, UNSPECIFIED Qualifiers: Anemia type: other cause Other causes of anemia: acute posthemorrhagic Qualified Code(s): D62 - Acute posthemorrhagic anemia (3) Diabetes Code(s): E11.9 - TYPE 2 DIABETES MELLITUS WITHOUT COMPLICATIONS (4) Hypothyroid Code(s): E03.9 - HYPOTHYROIDISM, UNSPECIFIED (5) UTI (urinary tract infection) Code(s): N39.0 - URINARY TRACT INFECTION, SITE NOT SPECIFIED Assessment/Plan UTI Anemia r/o Occult GIB AFIB DM hypothyroidism Mild dementia --+ESBL UTI on Meropenem, continue to complete 10 days - please obtain records to determine number of days left in treatment -- f/u repeat Urine culture -- GI note reviewed -- monitor Hgb/Hct -- monitor vitals, pt appears stable/afebrile at this time Will follow Thank you
[2018-08-06] MEDS ORDERED: MEROPENEM 1 GM VIAL (RESTRICTED TO ID) IVPB ONE ×2 (15:13→23:27)
[2018-08-06] MEDS ORDERED: DEXTROSE 5%-WATER 100 ML IVPB ONE ×2 (15:14→23:27)
[2018-08-06] MEDS: MEROPENEM 1 GM VIAL (RESTRICTED TO ID) IVPB SCH (15:57)
[2018-08-06 16:51] LABS: HEMATOCRIT 30.4 % (32.4-45.2); HEMOGLOBIN 9.6 GM/dL (10.7-15.3); MCH 24.7 pg (25.7-33.7); MCHC 31.8 g/dl (32.0-36.0); MEAN CELL VOLUME 77.8 fl (80-96); MEAN PLT VOLUME 7.6 fl (7.5-11.1); PLATELET COUNT 314 K/MM3 (134-434); WHITE BLOOD COUNT 5.7 K/mm3 (4.0-10.0)
[2018-08-06] MEDS: MEROPENEM 1 GM in DEXTROSE 5%-WATER 100 ML IVPB SCH (23:34)
[2018-08-06] MEDS: MONTELUKAST NA 10 MG TABLET PO SCH (23:35)
[2018-08-06] MEDS: PANTOPRAZOLE SODIUM 40 MG VIAL IVPUSH SCH (23:36)
[2018-08-07] MEDS: dilTIAZem HCL 30 MG TABLET (FP) PO SCH ×4 (01:10→18:33)
[2018-08-07] MEDS: MEROPENEM 1 GM VIAL (RESTRICTED TO ID) IVPB SCH (01:11)
[2018-08-07 04:08] LABS: SERUM IRON SATURATION 3 % (15-55); TOTAL IRON BINDING CAPACITY 275 ug/dL (250-450); UIBC 268 ug/dL (118-369)
[2018-08-07] MEDS: LACTATED RINGERS SOLUTION 1,000 ML/1,000 ML INFUS.BAG IV SCH ×2 (06:40→14:50)
[2018-08-07] MEDS: LEVOTHYROXINE NA 50 MCG TABLET (FP) PO SCH (06:42)
[2018-08-07 08:13] LABS: BASO % 0.8 % (0-2.0); EOS % 8.3 % (0-4.5); HEMOGLOBIN 9.4 GM/dL (10.7-15.3); LYMPH % 25.1 % (8-40); MCH 24.5 pg (25.7-33.7); MCHC 32.3 g/dl (32.0-36.0); MEAN CELL VOLUME 75.9 fl (80-96); MEAN PLT VOLUME 7.6 fl (7.5-11.1); MONO % 11.8 % (3.8-10.2); PLATELET COUNT 352 K/MM3 (134-434); RBC 3.82 M/mm3 (3.60-5.2); RDW 15.6 % (11.6-15.6); WHITE BLOOD COUNT 5.7 K/mm3 (4.0-10.0)
[2018-08-07 08:35] LABS: BLOOD UREA NITROGEN 16.8 mg/dL (7-18); CALCIUM 8.7 mg/dL (8.5-10.1); CREATININE 1.2 mg/dL (0.55-1.3); MAGNESIUM 2.2 mg/dL (1.8-2.4); PHOSPHOROUS 2.7 mg/dL (2.5-4.9)
--- NOTE | 2018-08-07 09:12 | PN ---
Progress Note (short form) - Note Progress Note: Pt was transfused yesterday. Hgb above 9 now: CBC, BMP 08/07/18 07:15 08/07/18 07:15 Comfortable, denies abdominal pain. She is now willing to have an EGD. Consent obtained from patient for EGD. I also obtained telephone consent from her nephew, Dr Aydin Tarango, in [place], at the listed phone number in the chart. Dr Tarango says that Ms Hernandes is competent but "stubborn."
[2018-08-07] MEDS ORDERED: MEROPENEM 1 GM VIAL (RESTRICTED TO ID) IVPB ONE ×3 (09:24→22:02)
[2018-08-07] MEDS ORDERED: DEXTROSE 5%-WATER 100 ML IVPB ONE ×3 (09:24→22:04)
[2018-08-07] MEDS: ASCORBIC ACID 500 MG TABLET (FP) PO SCH (10:04)
[2018-08-07] MEDS: PANTOPRAZOLE SODIUM 40 MG VIAL IVPUSH SCH ×2 (10:04→22:01)
[2018-08-07] MEDS: FERROUS SO4 325 MG TABLET (FP) PO SCH (10:04)
[2018-08-07] MEDS: CALCIUM 500MG/VIT-D 200 UNITS COMBO TABLET (FP) PO SCH (10:04)
[2018-08-07] MEDS: CHOLECALCIFEROL (VIT D3) 1,000 UNIT (25 MCG) TABLET PO SCH (10:04)
[2018-08-07] MEDS: DOCUSATE SODIUM 100 MG CAPSULE (FP) PO SCH (10:04)
[2018-08-07] MEDS ORDERED: PT OWN MED DRAWER 7, Y5N ONE (10:07)
[2018-08-07] MEDS: MEROPENEM 1 GM in DEXTROSE 5%-WATER 100 ML IVPB SCH ×2 (10:22→22:01)
--- NOTE | 2018-08-07 13:55 | PN ---
Progress Note, Physician Chief Complaint: Ms Hernandes is without complaint today. Denies cp, sob, n/v. - Current Medication List Current Medications: Active Medications Artificial Tears (Artificial Tears) 1 drop OU PRN PRN PRN Reason: DRY EYES Ascorbic Acid (Vitamin C -) 500 mg PO DAILY [facility] Last Admin: 08/07/18 10:04 Dose: 500 mg Calcium Carbonate/Cholecalciferol (Os-Brett 500+D -) 1 tab PO DAILY [facility] Last Admin: 08/07/18 10:04 Dose: 1 tab Cholecalciferol (Vitamin D3 -) 1,000 unit PO DAILY [facility] Last Admin: 08/07/18 10:04 Dose: 1,000 unit Diltiazem HCl (Cardizem -) 30 mg PO Q6HPO [facility] Last Admin: 08/07/18 13:13 Dose: 30 mg Docusate Sodium (Colace -) 200 mg PO DAILY [facility] Last Admin: 08/07/18 10:04 Dose: 200 mg Ferrous Sulfate (Feosol -) 325 mg PO DAILY [facility] Last Admin: 08/07/18 10:04 Dose: 325 mg Lactated Ringer's (Lactated Ringers Solution) 1,000 ml in 1,000 mls @ 42 mls/ hr IV ASDIR [facility] Last Admin: 08/07/18 06:40 Dose: Not Given Meropenem 1 gm/ Dextrose 100 mls @ 200 mls/hr IVPB BID [facility] Last Admin: 08/07/18 10:22 Dose: 200 mls/hr Levothyroxine Sodium (Synthroid -) 50 mcg PO DAILY@0700 [facility] Last Admin: 08/07/18 06:42 Dose: 50 mcg Montelukast Sodium (Singulair -) 10 mg PO HS [facility] Last Admin: 08/06/18 23:35 Dose: 10 mg Pantoprazole Sodium (Protonix Iv) 40 mg IVPUSH BID [facility] Last Admin: 08/07/18 10:04 Dose: 40 mg - Objective Vital Signs: Vital Signs Temperature 36.9 C 08/07/18 07:07 Pulse Rate 71 08/07/18 07:07 Respiratory Rate 18 08/07/18 07:07 Blood Pressure 128/74 08/07/18 07:07 O2 Sat by Pulse Oximetry (%) 96 08/06/18 21:00 Constitutional: Yes: Well Nourished, No Distress, Calm Cardiovascular: Yes: Regular Rate and Rhythm. No: Gallop, Murmur, Rub Respiratory: Yes: Regular, CTA Bilaterally. No: Rales, Rhonchi, Wheezes Gastrointestinal: Yes: Normal Bowel Sounds, Soft. No: Distention, Tenderness Extremities: Yes: WNL Edema: No Labs: CBC, BMP 08/07/18 07:15 08/07/18 07:15 INR, PTT INR 1.08 (0.83-1.09) 08/06/18 01:33 Problem List - Problems (1) Anemia Code(s): D64.9 - ANEMIA, UNSPECIFIED Qualifiers: Anemia type: other cause Other causes of anemia: acute posthemorrhagic Qualified Code(s): D62 - Acute posthemorrhagic anemia (2) Occult GI bleeding Code(s): R19.5 - OTHER FECAL ABNORMALITIES (3) UTI (urinary tract infection) Code(s): N39.0 - URINARY TRACT INFECTION, SITE NOT SPECIFIED (4) Afib Code(s): I48.91 - UNSPECIFIED ATRIAL FIBRILLATION Qualifiers: Atrial fibrillation type: paroxysmal Qualified Code(s): I48.0 - Paroxysmal atrial fibrillation (5) Hypothyroid Code(s): E03.9 - HYPOTHYROIDISM, UNSPECIFIED (6) Ovarian cyst Code(s): N83.209 - UNSPECIFIED OVARIAN CYST, UNSPECIFIED SIDE Qualifiers: Laterality: right Qualified Code(s): N83.201 - Unspecified ovarian cyst, right side Assessment/Plan (1) Anemia Assessment/Plan: -patient with history of iron deficiency anemia coming in with worsening anemia -s/p transfusion with robust response -protonix 40mg IV bid -appreciate GI assistance, planning for endoscopy tomorrow Code(s): D64.9 - ANEMIA, UNSPECIFIED Qualifiers: Anemia type: other cause Other causes of anemia: acute posthemorrhagic Qualified Code(s): D62 - Acute posthemorrhagic anemia (2) Occult GI bleeding Assessment/Plan: -as above Code(s): R19.5 - OTHER FECAL ABNORMALITIES (3) UTI (urinary tract infection) Assessment/Plan: -h/o ESBL -continue merrem -ID consulted and following Code(s): N39.0 - URINARY TRACT INFECTION, SITE NOT SPECIFIED (4) Afib Assessment/Plan: -continue diltiazem -no AC secondary to anemia Code(s): I48.91 - UNSPECIFIED ATRIAL FIBRILLATION Qualifiers: Atrial fibrillation type: paroxysmal Qualified Code(s): I48.0 - Paroxysmal atrial fibrillation (5) Hypothyroid Assessment/Plan: -continue synthroid Code(s): E03.9 - HYPOTHYROIDISM, UNSPECIFIED (6) Ovarian cyst Assessment/Plan: -gynecology consulted Code(s): N83.209 - UNSPECIFIED OVARIAN CYST, UNSPECIFIED SIDE Qualifiers: Laterality: right Qualified Code(s): N83.201 - Unspecified ovarian cyst, right side
--- NOTE | 2018-08-07 16:51 | PN ---
Progress Note, Physician History of Present Illness: Pt is alert and fully responsive. States she feels well. Remains well. Pt has no complaints at this time. s/p PRBC transfusion. No abd pain/n/v/d reported. - Current Medication List Current Medications: Active Medications Artificial Tears (Artificial Tears) 1 drop OU PRN PRN PRN Reason: DRY EYES Ascorbic Acid (Vitamin C -) 500 mg PO DAILY [facility] Last Admin: 08/07/18 10:04 Dose: 500 mg Calcium Carbonate/Cholecalciferol (Os-Brett 500+D -) 1 tab PO DAILY [facility] Last Admin: 08/07/18 10:04 Dose: 1 tab Cholecalciferol (Vitamin D3 -) 1,000 unit PO DAILY [facility] Last Admin: 08/07/18 10:04 Dose: 1,000 unit Diltiazem HCl (Cardizem -) 30 mg PO Q6HPO [facility] Last Admin: 08/07/18 13:13 Dose: 30 mg Docusate Sodium (Colace -) 200 mg PO DAILY [facility] Last Admin: 08/07/18 10:04 Dose: 200 mg Ferrous Sulfate (Feosol -) 325 mg PO DAILY [facility] Last Admin: 08/07/18 10:04 Dose: 325 mg Lactated Ringer's (Lactated Ringers Solution) 1,000 ml in 1,000 mls @ 42 mls/ hr IV ASDIR [facility] Last Admin: 08/07/18 14:50 Dose: 42 mls/hr Meropenem 1 gm/ Dextrose 100 mls @ 200 mls/hr IVPB BID [facility] Last Admin: 08/07/18 10:22 Dose: 200 mls/hr Levothyroxine Sodium (Synthroid -) 50 mcg PO DAILY@0700 [facility] Last Admin: 08/07/18 06:42 Dose: 50 mcg Montelukast Sodium (Singulair -) 10 mg PO HS [facility] Last Admin: 08/06/18 23:35 Dose: 10 mg Pantoprazole Sodium (Protonix Iv) 40 mg IVPUSH BID [facility] Last Admin: 08/07/18 10:04 Dose: 40 mg - Objective Vital Signs: Vital Signs Temperature 98.1 F 08/07/18 15:41 Pulse Rate 70 08/07/18 15:41 Respiratory Rate 18 08/07/18 15:41 Blood Pressure 125/69 08/07/18 15:41 O2 Sat by Pulse Oximetry (%) 96 08/06/18 21:00 Constitutional: Yes: No Distress, Calm Cardiovascular: Yes: Regular Rate and Rhythm Respiratory: Yes: CTA Bilaterally Gastrointestinal: Yes: Normal Bowel Sounds, Soft Genitourinary: Yes: WNL Extremities: Yes: WNL Neurological: Yes: Alert Labs: CBC, BMP 08/07/18 07:15 08/07/18 07:15 INR, PTT INR 1.08 (0.83-1.09) 08/06/18 01:33 - ....Imaging Chest X-ray: Report Reviewed Problem List - Problems (1) Afib Code(s): I48.91 - UNSPECIFIED ATRIAL FIBRILLATION Qualifiers: Atrial fibrillation type: paroxysmal Qualified Code(s): I48.0 - Paroxysmal atrial fibrillation (2) Anemia Code(s): D64.9 - ANEMIA, UNSPECIFIED Qualifiers: Anemia type: other cause Other causes of anemia: acute posthemorrhagic Qualified Code(s): D62 - Acute posthemorrhagic anemia (3) Diabetes Code(s): E11.9 - TYPE 2 DIABETES MELLITUS WITHOUT COMPLICATIONS (4) Hypothyroid Code(s): E03.9 - HYPOTHYROIDISM, UNSPECIFIED (5) UTI (urinary tract infection) Code(s): N39.0 - URINARY TRACT INFECTION, SITE NOT SPECIFIED Assessment/Plan UTI ESBL + Anemia r/o Occult GIB AFIB DM hypothyroidism Mild dementia --continue Meropenem -- repeat Urine Cx no growth -- GI following -- monitor Hgb/Hct -- monitor vitals, pt appears stable/afebrile at this time
[2018-08-07] MEDS: MONTELUKAST NA 10 MG TABLET PO SCH (22:27)
[2018-08-08] MEDS: dilTIAZem HCL 30 MG TABLET (FP) PO SCH ×5 (01:31→17:04)
[2018-08-08 07:27] LABS: BASO % 0.8 % (0-2.0); EOS % 6.4 % (0-4.5); HEMATOCRIT 27.2 % (32.4-45.2); HEMOGLOBIN 8.8 GM/dL (10.7-15.3); MCH 24.5 pg (25.7-33.7); MCHC 32.4 g/dl (32.0-36.0); MEAN CELL VOLUME 75.5 fl (80-96); MEAN PLT VOLUME 7.5 fl (7.5-11.1); MONO % 13.2 % (3.8-10.2); NEUT % 52.6 % (42.8-82.8); PLATELET COUNT 322 K/MM3 (134-434); RDW 15.5 % (11.6-15.6); WHITE BLOOD COUNT 5.2 K/mm3 (4.0-10.0)
[2018-08-08] MEDS: LEVOTHYROXINE NA 50 MCG TABLET (FP) PO SCH (07:35)
[2018-08-08 08:15] LABS: BLOOD UREA NITROGEN 14.1 mg/dL (7-18); CALCIUM 8.8 mg/dL (8.5-10.1); CREATININE 1.2 mg/dL (0.55-1.3); MAGNESIUM 2.1 mg/dL (1.8-2.4); PHOSPHOROUS 2.7 mg/dL (2.5-4.9)
[2018-08-08] MEDS ORDERED: MEROPENEM 1 GM VIAL (RESTRICTED TO ID) IVPB ONE ×2 (09:52→21:18)
[2018-08-08] MEDS ORDERED: DEXTROSE 5%-WATER 100 ML IVPB ONE ×2 (09:53→21:18)
[2018-08-08] MEDS: MEROPENEM 1 GM in DEXTROSE 5%-WATER 100 ML IVPB SCH ×2 (09:56→22:57)
[2018-08-08] MEDS: PANTOPRAZOLE SODIUM 40 MG VIAL IVPUSH SCH (09:57)
[2018-08-08] MEDS: LACTATED RINGERS SOLUTION 1,000 ML/1,000 ML INFUS.BAG IV SCH (10:03)
[2018-08-08] MEDS: FERROUS SO4 325 MG TABLET (FP) PO SCH (10:03)
[2018-08-08] MEDS: DOCUSATE SODIUM 100 MG CAPSULE (FP) PO SCH (10:03)
[2018-08-08] MEDS: CALCIUM 500MG/VIT-D 200 UNITS COMBO TABLET (FP) PO SCH (10:04)
[2018-08-08] MEDS: CHOLECALCIFEROL (VIT D3) 1,000 UNIT (25 MCG) TABLET PO SCH (10:04)
[2018-08-08] MEDS: ASCORBIC ACID 500 MG TABLET (FP) PO SCH (10:04)
--- NOTE | 2018-08-08 10:15 | PN ---
Physical Exam: SUBJECTIVE: Patient seen and examined, no complaints. OBJECTIVE: Vital Signs Period Temp Pulse Resp BP Sys/Castro Pulse Ox Last 24 Hr 97.8 F-98.3 F 65-72 18-18 120-129/64-80 95 Intake & Output 08/05/18 08/06/18 08/07/18 08/08/18 23:59 23:59 23:59 23:59 Intake Total 750 2515 394 Balance 750 2515 394 Weight 180 lb 131 lb 8 oz General: lying in bed in no acute distress Chest: poor effort, no rales or wheezing Abdomen: soft, NT, nD, pos bowel sounds extremities: no edema neck: soft, supple, no JVD CVS:S1S2 regular Laboratory Results - last 24 hr 08/07/18 08/08/18 08/08/18 22:21 06:38 07:00 WBC 5.2 RBC 3.60 Hgb 8.8 L Hct 27.2 L MCV 75.5 L MCH 24.5 L MCHC 32.4 RDW 15.5 Plt Count 322 MPV 7.5 Absolute Neuts (auto) 2.7 Neutrophils % 52.6 Lymphocytes % 27.0 Monocytes % 13.2 H Eosinophils % 6.4 H Basophils % 0.8 Nucleated RBC % 0 Sodium Potassium Chloride Carbon Dioxide Anion Gap BUN Creatinine Est GFR (CKD-EPI)AfAm Est GFR (CKD-EPI)NonAf POC Glucometer 85 77 Random Glucose Calcium Phosphorus Magnesium 08/08/18 07:00 WBC RBC Hgb Hct MCV MCH MCHC RDW Plt Count MPV Absolute Neuts (auto) Neutrophils % Lymphocytes % Monocytes % Eosinophils % Basophils % Nucleated RBC % Sodium 144 Potassium 4.0 Chloride 111 H Carbon Dioxide 27 Anion Gap 6 L BUN 14.1 Creatinine 1.2 Est GFR (CKD-EPI)AfAm 48.06 Est GFR (CKD-EPI)NonAf 41.47 POC Glucometer Random Glucose 82 Calcium 8.8 Phosphorus 2.7 Magnesium 2.1 Active Medications Generic Name Dose Route Start Last Admin Trade Name Freq PRN Reason Stop Dose Admin Artificial Tears 1 drop 08/06/18 04:30 Artificial Tears OU PRN PRN DRY EYES Ascorbic Acid 500 mg 08/06/18 10:00 08/08/18 10:04 Vitamin C - PO Not Given DAILY [facility] Calcium Carbonate/Cholecalciferol 1 tab 08/06/18 10:00 08/08/18 10:04 Os-Brett 500+D - PO Not Given DAILY [facility] Cholecalciferol 1,000 unit 08/06/18 10:00 08/08/18 10:04 Vitamin D3 - PO Not Given DAILY [facility] Diltiazem HCl 30 mg 08/06/18 06:00 08/08/18 07:47 Cardizem - PO 30 mg Q6HPO [facility] Administration Docusate Sodium 200 mg 08/06/18 10:00 08/08/18 10:03 Colace - PO Not Given DAILY [facility] Ferrous Sulfate 325 mg 08/06/18 10:00 08/08/18 10:03 Feosol - PO Not Given DAILY [facility] Lactated Ringer's 1,000 ml in 1,000 mls @ 42 mls/hr 08/06/18 04:30 08/08/18 10:03 Lactated Ringers Solution IV Not Given ASDIR [facility] Meropenem 1 gm/ Dextrose 100 mls @ 200 mls/hr 08/06/18 23:00 08/08/18 09:56 IVPB 200 mls/hr BID [facility] Administration Levothyroxine Sodium 50 mcg 08/06/18 07:00 08/08/18 07:35 Synthroid - PO Not Given DAILY@0700 [facility] Montelukast Sodium 10 mg 08/06/18 22:00 08/07/18 22:27 Singulair - PO 10 mg HS [facility] Administration Pantoprazole Sodium 40 mg 08/06/18 22:00 08/08/18 09:57 Protonix Iv IVPUSH 40 mg BID [facility] Administration Microbiology 08/06/18 02:05 Urine - Urine Clean Catch Urine Culture - Final NO GROWTH OBTAINED cT A/P results reviewed ASSESSMENT/PLAN: 83 yof with PMHx of UTI, AFIB, iron deficiency anemia, T2DM, hypothyroidism, Normal pressure hydrocephalus, and a stage 1 Sacral ulcer, recently being treated for ESBL UTI with meropenem, admitted with 3 episodes of vomiting and Hb 7.5 -Acute on chronc severe iron deficiency anemia, r/o occult GI bleed -?Stercoral colitis with fecal impaction/retention -Complex ovarian cysts -Afib, not on AC -Recent ESBL UTI on meropenem -Hypothyroidism -NPH -Stage I sacral ulcer Plan: GI input noted, for EGD today, PPI IV BID. Appropriate response to PRBC. Await vehicle check in clerk input. Unable to get transvaginal US. Bladder scan q6h to assess for retention. Renal function stable. ID input noted, Meropenem, retrieve more info about duration of abx from [facility]. Will need aggressive bowel regimen, pending above w/u and possible prep for colonoscopy Continue gentle hydration, levothyroxine,diltiazem DVTPP SCDs given severe anemia and concerns for bleed Dispo to NH Pending resolution of medical concerns. ' Discussed with patient and nursing. Visit type - Emergency Visit Emergency Visit: Yes ED Registration Date: 08/06/18 Care time: The patient presented to the Emergency Department on the above date and was hospitalized for further evaluation of their emergent condition. - New Patient This patient is new to me today: Yes Date on this admission: 08/08/18 - Critical Care Critical Care patient: No - Discharge Referral Referred to [facility] Med P.C.: No
--- NOTE | 2018-08-08 12:11 | PN ---
Progress Note (short form) - Note Progress Note: Brief GI note - see paper report of EGD in chart for details Large hiatal hernia Clean based antral ulcer, likely source of RADAMES, biopsied stomach for H. pylori Resume diet Once daily PPI Avoid NSAIDs Await biopsies, treat H. pylori if positive
--- NOTE | 2018-08-08 13:06 | PN ---
Progress Note, Physician History of Present Illness: stable no new issues - Current Medication List Current Medications: Active Medications Artificial Tears (Artificial Tears) 1 drop OU PRN PRN PRN Reason: DRY EYES Ascorbic Acid (Vitamin C -) 500 mg PO DAILY [facility] Last Admin: 08/08/18 10:04 Dose: Not Given Calcium Carbonate/Cholecalciferol (Os-Brett 500+D -) 1 tab PO DAILY [facility] Last Admin: 08/08/18 10:04 Dose: Not Given Cholecalciferol (Vitamin D3 -) 1,000 unit PO DAILY [facility] Last Admin: 08/08/18 10:04 Dose: Not Given Diltiazem HCl (Cardizem -) 30 mg PO Q6HPO [facility] Last Admin: 08/08/18 12:19 Dose: Not Given Docusate Sodium (Colace -) 200 mg PO DAILY [facility] Last Admin: 08/08/18 10:03 Dose: Not Given Ferrous Sulfate (Feosol -) 325 mg PO DAILY [facility] Last Admin: 08/08/18 10:03 Dose: Not Given Lactated Ringer's (Lactated Ringers Solution) 1,000 ml in 1,000 mls @ 42 mls/ hr IV ASDIR [facility] Last Admin: 08/08/18 10:03 Dose: Not Given Meropenem 1 gm/ Dextrose 100 mls @ 200 mls/hr IVPB BID [facility] Last Admin: 08/08/18 09:56 Dose: 200 mls/hr Levothyroxine Sodium (Synthroid -) 50 mcg PO DAILY@0700 [facility] Last Admin: 08/08/18 07:35 Dose: Not Given Montelukast Sodium (Singulair -) 10 mg PO HS [facility] Last Admin: 08/07/18 22:27 Dose: 10 mg Pantoprazole Sodium (Protonix -) 40 mg PO DAILY [facility] - Objective Vital Signs: Vital Signs Temperature 97.9 F 08/08/18 12:58 Pulse Rate 62 08/08/18 12:58 Respiratory Rate 16 08/08/18 12:58 Blood Pressure 156/61 08/08/18 12:58 O2 Sat by Pulse Oximetry (%) 96 08/08/18 12:58 Constitutional: Yes: No Distress, Calm Cardiovascular: Yes: S1, S2 Respiratory: Yes: Regular, CTA Bilaterally Musculoskeletal: Yes: WNL Extremities: Yes: WNL Neurological: Yes: Alert Psychiatric: Yes: Alert Labs: CBC, BMP 08/08/18 07:00 08/08/18 07:00 INR, PTT INR 1.08 (0.83-1.09) 08/06/18 01:33 Assessment/Plan Problem List - Problems (1) Afib Code(s): I48.91 - UNSPECIFIED ATRIAL FIBRILLATION Qualifiers: Atrial fibrillation type: paroxysmal Qualified Code(s): I48.0 - Paroxysmal atrial fibrillation (2) Anemia Code(s): D64.9 - ANEMIA, UNSPECIFIED Qualifiers: Anemia type: other cause Other causes of anemia: acute posthemorrhagic Qualified Code(s): D62 - Acute posthemorrhagic anemia (3) Diabetes Code(s): E11.9 - TYPE 2 DIABETES MELLITUS WITHOUT COMPLICATIONS (4) Hypothyroid Code(s): E03.9 - HYPOTHYROIDISM, UNSPECIFIED (5) UTI (urinary tract infection) Code(s): N39.0 - URINARY TRACT INFECTION, SITE NOT SPECIFIED Assessment/Plan UTI ESBL + Anemia r/o Occult GIB AFIB DM hypothyroidism Mild dementia plan complete the abx course rest as per the team
[2018-08-08] MEDS: MONTELUKAST NA 10 MG TABLET PO SCH ×2 (22:57→23:02)
[2018-08-09] MEDS: dilTIAZem HCL 30 MG TABLET (FP) PO SCH ×5 (00:08→23:28)
[2018-08-09] MEDS: LACTATED RINGERS SOLUTION 1,000 ML/1,000 ML INFUS.BAG IV SCH (05:25)
[2018-08-09] MEDS: LEVOTHYROXINE NA 50 MCG TABLET (FP) PO SCH (06:25)
[2018-08-09 08:38] LABS: CALCIUM 8.8 mg/dL (8.5-10.1); CREATININE 1.3 mg/dL (0.55-1.3); MAGNESIUM 2.2 mg/dL (1.8-2.4); PHOSPHOROUS 2.8 mg/dL (2.5-4.9); POTASSIUM 4.2 mmol/L (3.5-5.1)
[2018-08-09 08:48] LABS: BASO % 0.5 % (0-2.0); EOS % 5.9 % (0-4.5); HEMATOCRIT 28.5 % (32.4-45.2); HEMOGLOBIN 9.2 GM/dL (10.7-15.3); MCH 24.5 pg (25.7-33.7); MCHC 32.3 g/dl (32.0-36.0); MEAN CELL VOLUME 75.7 fl (80-96); MEAN PLT VOLUME 7.6 fl (7.5-11.1); MONO % 12.3 % (3.8-10.2); NEUT % 52.3 % (42.8-82.8); RBC 3.76 M/mm3 (3.60-5.2); RDW 15.9 % (11.6-15.6); WHITE BLOOD COUNT 5.1 K/mm3 (4.0-10.0)
[2018-08-09 09:17] LABS: PLATELET COUNT 331 K/MM3 (134-434)
[2018-08-09] MEDS ORDERED: MEROPENEM 1 GM VIAL (RESTRICTED TO ID) IVPB ONE ×2 (09:22→21:01)
[2018-08-09] MEDS ORDERED: DEXTROSE 5%-WATER 100 ML IVPB ONE ×2 (09:22→21:01)
[2018-08-09] MEDS: MEROPENEM 1 GM in DEXTROSE 5%-WATER 100 ML IVPB SCH ×2 (09:33→21:08)
[2018-08-09] MEDS: CHOLECALCIFEROL (VIT D3) 1,000 UNIT (25 MCG) TABLET PO SCH (09:34)
[2018-08-09] MEDS: PANTOPRAZOLE 40 MG TABLET (FP) PO SCH (09:34)
[2018-08-09] MEDS: CALCIUM 500MG/VIT-D 200 UNITS COMBO TABLET (FP) PO SCH (09:34)
[2018-08-09] MEDS: FERROUS SO4 325 MG TABLET (FP) PO SCH (09:34)
[2018-08-09] MEDS: DOCUSATE SODIUM 100 MG CAPSULE (FP) PO SCH (09:34)
[2018-08-09] MEDS: ASCORBIC ACID 500 MG TABLET (FP) PO SCH (09:34)
--- NOTE | 2018-08-09 11:34 | PN ---
Progress Note, Physician History of Present Illness: stable doing well says she feels much better - Current Medication List Current Medications: Active Medications Artificial Tears (Artificial Tears) 1 drop OU PRN PRN PRN Reason: DRY EYES Ascorbic Acid (Vitamin C -) 500 mg PO DAILY [facility] Last Admin: 08/09/18 09:34 Dose: 500 mg Calcium Carbonate/Cholecalciferol (Os-Brett 500+D -) 1 tab PO DAILY [facility] Last Admin: 08/09/18 09:34 Dose: 1 tab Cholecalciferol (Vitamin D3 -) 1,000 unit PO DAILY [facility] Last Admin: 08/09/18 09:34 Dose: 1,000 unit Diltiazem HCl (Cardizem -) 30 mg PO Q6HPO [facility] Last Admin: 08/09/18 06:25 Dose: 30 mg Docusate Sodium (Colace -) 200 mg PO DAILY [facility] Last Admin: 08/09/18 09:34 Dose: 200 mg Ferrous Sulfate (Feosol -) 325 mg PO DAILY [facility] Last Admin: 08/09/18 09:34 Dose: 325 mg Lactated Ringer's (Lactated Ringers Solution) 1,000 ml in 1,000 mls @ 42 mls/ hr IV ASDIR [facility] Last Admin: 08/09/18 05:25 Dose: 42 mls/hr Meropenem 1 gm/ Dextrose 100 mls @ 200 mls/hr IVPB BID [facility] Last Admin: 08/09/18 09:33 Dose: 200 mls/hr Levothyroxine Sodium (Synthroid -) 50 mcg PO DAILY@0700 [facility] Last Admin: 08/09/18 06:25 Dose: 50 mcg Montelukast Sodium (Singulair -) 10 mg PO HS [facility] Last Admin: 08/08/18 23:02 Dose: Not Given Pantoprazole Sodium (Protonix -) 40 mg PO DAILY [facility] Last Admin: 08/09/18 09:34 Dose: 40 mg - Objective Vital Signs: Vital Signs Temperature 98.9 F 08/09/18 06:00 Pulse Rate 67 08/09/18 06:00 Respiratory Rate 20 08/09/18 06:00 Blood Pressure 128/70 08/09/18 06:00 O2 Sat by Pulse Oximetry (%) 96 08/08/18 12:58 Constitutional: Yes: No Distress, Calm Cardiovascular: Yes: S1, S2 Respiratory: Yes: Regular, CTA Bilaterally Gastrointestinal: Yes: Normal Bowel Sounds, Soft Musculoskeletal: Yes: WNL Extremities: Yes: WNL Neurological: Yes: Alert, Oriented Psychiatric: Yes: Alert, Oriented Labs: CBC, BMP 08/09/18 07:49 08/09/18 07:49 INR, PTT INR 1.08 (0.83-1.09) 08/06/18 01:33 Assessment/Plan Problem List - Problems (1) Afib Code(s): I48.91 - UNSPECIFIED ATRIAL FIBRILLATION Qualifiers: Atrial fibrillation type: paroxysmal Qualified Code(s): I48.0 - Paroxysmal atrial fibrillation (2) Anemia Code(s): D64.9 - ANEMIA, UNSPECIFIED Qualifiers: Anemia type: other cause Other causes of anemia: acute posthemorrhagic Qualified Code(s): D62 - Acute posthemorrhagic anemia (3) Diabetes Code(s): E11.9 - TYPE 2 DIABETES MELLITUS WITHOUT COMPLICATIONS (4) Hypothyroid Code(s): E03.9 - HYPOTHYROIDISM, UNSPECIFIED (5) UTI (urinary tract infection) Code(s): N39.0 - URINARY TRACT INFECTION, SITE NOT SPECIFIED Assessment/Plan UTI ESBL + Anemia r/o Occult GIB AFIB DM hypothyroidism Mild dementia plan complete the abx course rest as per the team gi note noted doing well
--- NOTE | 2018-08-09 12:14 | CON.OBG ---
Consult Consult Specialty:: Gynecology Reason for Consultation:: Adnexal masses noted on CT without evidance of ascites. US c/w 6.2cm and 7.7cm adnexal cysts - History of Present Illness History of Present Illness: Pt is an 83 y/o F with a significant past medical history of UTI, AFIB, iron deficiency anemia, T2DM, hypothyroidism, Normal pressure hydrocephalus, and a stage 1 Sacral ulcer who was sent from [facility] to [facility] due to 3 episodes of vomiting as well as a hemoglobin level of 7.55. Pt appears to be a poor historian and information is limited. Pt is reportedly being treated currently for an ESBL UTI; pt has a PICC line. Upon questioning patient, pt denies any chest pain, shortness of breath, or recent illness. 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 (mild dementia) Cardio/Vascular: Yes: AFIB Endocrine: Yes: Diabetes Mellitus, Hypothyroidism - Alcohol/Substance Use Hx Alcohol Use: No - Smoking History Smoking history: Never smoked Have you smoked in the past 12 months: No - Social History Usual Living Arrangement: Long Term History of Recent Travel: No Home Medications - Allergies Allergies/Adverse Reactions: Allergies Allergy/AdvReac Type Severity Reaction Status Date / Time Penicillins Allergy Unknown Verified 08/06/18 02:14 strawberry Allergy Unknown Verified 08/06/18 02:13 - Home Medications Home Medications: Ambulatory Orders Acetaminophen 325 mg PO PRN 08/06/18 Ascorbic Acid [Vitamin C -] 500 mg PO DAILY 08/06/18 Calcium Carbonate/Vitamin D3 [Oyster Shell 500-Vit D3 200 Tb] 1 each PO DAILY Cholecalciferol (Vitamin D3) [Vitamin D3] 1,000 unit PO DAILY 08/06/18 Dextran 70/Hypromellose/Pf [Artificial Tears Drops] 1 each OP PRN 08/06/18 Diltiazem [Cardizem -] 30 mg PO QID 08/06/18 Docusate Sodium 200 mg PO DAILY 08/06/18 Ferrous Sulfate 325 mg PO DAILY 08/06/18 Heparin - 5,000 unit SQ BID 08/06/18 Levothyroxine [Synthroid -] 50 mcg PO DAILY 08/06/18 Meropenem-0.9% Sodium Chloride [Meropenem-0.9% NaCl 1 Gram/50] 1 gm IV BID 08/06 Montelukast Sodium [Singulair] 10 mg PO DAILY 08/06/18 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
--- NOTE | 2018-08-09 12:26 | PN ---
Physical Exam: SUBJECTIVE: Patient seen and examined, no complaints, Tolerating diet well. OBJECTIVE: Vital Signs Period Temp Pulse Resp BP Sys/Castro Pulse Ox Last 24 Hr 97.8 F-98.9 F 60-75 16-20 92-156/53-74 96-96 Intake & Output 08/06/18 08/07/18 08/08/18 08/09/18 23:59 23:59 23:59 23:59 Intake Total 750 2515 1274 352 Balance 750 2515 1274 352 Weight 131 lb 8 oz GENERAL: sitting in bed in no acute distress Chest: Decreased effort, no rales or wheezing Abdomen: soft, NT, ND, no suprapubic or CVA tenderness Extremities: no edema Psych: Pleasant, co-operative, oriented to self, knows is in the hospital Laboratory Results - last 24 hr 08/06/18 08/06/18 08/08/18 01:33 01:33 17:07 WBC RBC Hgb Hct MCV MCH MCHC RDW Plt Count MPV Absolute Neuts (auto) Neutrophils % Lymphocytes % Monocytes % Eosinophils % Basophils % Nucleated RBC % Sodium Potassium Chloride Carbon Dioxide Anion Gap BUN Creatinine Est GFR (CKD-EPI)AfAm Est GFR (CKD-EPI)NonAf POC Glucometer 83 Random Glucose Calcium Phosphorus Magnesium Iron No Result Required. TIBC Iron Saturation No Result Required. Unsaturated IBC No Result Required. Blood Type O POSITIVE Antibody Screen Negative Crossmatch See Detail 08/08/18 08/09/18 08/09/18 22:56 06:05 07:49 WBC 5.1 RBC 3.76 Hgb 9.2 L Hct 28.5 L MCV 75.7 L MCH 24.5 L MCHC 32.3 RDW 15.9 H Plt Count 331 MPV 7.6 Absolute Neuts (auto) 2.7 Neutrophils % 52.3 Lymphocytes % 29.0 Monocytes % 12.3 H Eosinophils % 5.9 H Basophils % 0.5 Nucleated RBC % 0 Sodium Potassium Chloride Carbon Dioxide Anion Gap BUN Creatinine Est GFR (CKD-EPI)AfAm Est GFR (CKD-EPI)NonAf POC Glucometer 103 87 Random Glucose Calcium Phosphorus Magnesium Iron TIBC Iron Saturation Unsaturated IBC Blood Type Antibody Screen Crossmatch 08/09/18 07:49 WBC RBC Hgb Hct MCV MCH MCHC RDW Plt Count MPV Absolute Neuts (auto) Neutrophils % Lymphocytes % Monocytes % Eosinophils % Basophils % Nucleated RBC % Sodium 142 Potassium 4.2 Chloride 110 H Carbon Dioxide 29 Anion Gap 4 L BUN 17.0 Creatinine 1.3 Est GFR (CKD-EPI)AfAm 43.63 Est GFR (CKD-EPI)NonAf 37.64 POC Glucometer Random Glucose 80 Calcium 8.8 Phosphorus 2.8 Magnesium 2.2 Iron TIBC Iron Saturation Unsaturated IBC Blood Type Antibody Screen Crossmatch Active Medications Generic Name Dose Route Start Last Admin Trade Name Freq PRN Reason Stop Dose Admin Artificial Tears 1 drop 08/06/18 04:30 Artificial Tears OU PRN PRN DRY EYES Ascorbic Acid 500 mg 08/06/18 10:00 08/09/18 09:34 Vitamin C - PO 500 mg DAILY DALE Administration Calcium Carbonate/Cholecalciferol 1 tab 08/06/18 10:00 08/09/18 09:34 Os-Brett 500+D - PO 1 tab DAILY DALE Administration Cholecalciferol 1,000 unit 08/06/18 10:00 08/09/18 09:34 Vitamin D3 - PO 1,000 unit DAILY DALE Administration Diltiazem HCl 30 mg 08/06/18 06:00 08/09/18 12:02 Cardizem - PO 30 mg Q6HPO DALE Administration Docusate Sodium 200 mg 08/06/18 10:00 08/09/18 09:34 Colace - PO 200 mg DAILY DALE Administration Ferrous Sulfate 325 mg 08/06/18 10:00 08/09/18 09:34 Feosol - PO 325 mg DAILY DALE Administration Lactated Ringer's 1,000 ml in 1,000 mls @ 42 mls/hr 08/06/18 04:30 08/09/18 05:25 Lactated Ringers Solution IV 42 mls/hr ASDIR DALE Administration Meropenem 1 gm/ Dextrose 100 mls @ 200 mls/hr 08/06/18 23:00 08/09/18 09:33 IVPB 200 mls/hr BID DALE Administration Levothyroxine Sodium 50 mcg 08/06/18 07:00 08/09/18 06:25 Synthroid - PO 50 mcg DAILY@0700 DALE Administration Montelukast Sodium 10 mg 08/06/18 22:00 08/08/18 23:02 Singulair - PO Not Given HS DALE Pantoprazole Sodium 40 mg 08/09/18 10:00 08/09/18 09:34 Protonix - PO 40 mg DAILY DALE Administration Microbiology 08/06/18 02:05 Urine - Urine Clean Catch Urine Culture - Final NO GROWTH OBTAINED ASSESSMENT/PLAN: 83 yof with PMHx of UTI, AFIB, iron deficiency anemia, T2DM, hypothyroidism, Normal pressure hydrocephalus, and a stage 1 Sacral ulcer, recently being treated for ESBL UTI with meropenem, admitted with 3 episodes of vomiting and Hb 7.5 -Acute on chronc severe iron deficiency anemia, -Clean based antral ulcer/PUD -Large Hiatal hernia -?Stercoral colitis with fecal impaction/retention -Complex ovarian cysts -Afib, not on AC -Recent ESBL UTI on meropenem -Hypothyroidism -NPH -Stage I sacral ulcer Plan: EGD noted, Continue PPI, PO as tolerated. Follow up biopsies. Avoid NSAIDs. Appropriate response to PRBC. Start miralax, aggressive bowel regimen given CT findings. Not a candidate for transvaginal US. Renal/Bladder US noted, discussed with , follow up recs. ID input noted. Called [facility] to retrieve more info on meropenem duration. Unable to reach. Will re-attempt. Plan to finish determined outpatient course. no evidnence of urinary retention inhouse. dc IVF. continue levothyroxine/diltiazem. 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 Discussed with patient and nursing. Visit type - Emergency Visit Emergency Visit: Yes ED Registration Date: 08/06/18 Care time: The patient presented to the Emergency Department on the above date and was hospitalized for further evaluation of their emergent condition. - New Patient This patient is new to me today: No - Critical Care Critical Care patient: No - Discharge Referral Referred to [facility] Med P.C.: No
--- NOTE | 2018-08-09 12:39 | PN.GI ---
GI Progress Note Subjective: No acute events EGD report noted No overt bleeding - Objective Vital Signs: Vital Signs Temperature 98.9 F 08/09/18 06:00 Pulse Rate 67 08/09/18 06:00 Respiratory Rate 20 08/09/18 06:00 Blood Pressure 128/70 08/09/18 06:00 O2 Sat by Pulse Oximetry (%) 96 08/08/18 12:58 Constitutional: Calm Eyes: No: Sclera Icterus Cardiovascular: Yes: Regular Rate and Rhythm Respiratory: Yes: CTA Bilaterally Gastrointestinal Inspection: No: Distention ...Auscultate: Yes: Normoactive Bowel Sounds ...Palpate: Yes: Soft. No: Hepatomegaly, Splenomegaly, Tenderness Edema: No (No LE edema) Neurological: Yes: Alert Labs: CBC, BMP 08/09/18 07:49 08/09/18 07:49 INR, PTT INR 1.08 (0.83-1.09) 08/06/18 01:33 Hepatic Panel Total Bilirubin 0.4 mg/dL (0.2-1) 08/06/18 01:33 AST 151 U/L (15-37) H 08/06/18 01:33 ALT 242 U/L (13-61) H 08/06/18 01:33 Alkaline Phosphatase 98 U/L (45-117) 08/06/18 01:33 Albumin 3.2 g/dl (3.4-5.0) L 08/06/18 01:33 Problem List - Problems (1) Anemia Assessment/Plan: EGD findings noted. Follow-up path and if h. pylori + would treat Had discussion with Ms. Hernandes regarding colonoscopy to exclude colon source of anemia such as colon cancer. She has declined this procedure. I gave her my card to discuss further if she changes her mind. Code(s): D64.9 - ANEMIA, UNSPECIFIED Qualifiers: Anemia type: other cause Other causes of anemia: acute posthemorrhagic Qualified Code(s): D62 - Acute posthemorrhagic anemia (2) Abnormal liver enzymes Assessment/Plan: Asymptomatic. Transaminases were elevated a few days back, no repeat as of yet Ordered repeat hepatic panel for AM, screening hepatitis serologies and abdominal US Code(s): R74.8 - ABNORMAL LEVELS OF OTHER SERUM ENZYMES
[2018-08-09] MEDS: POLYETHYLENE GLYCOL 3350 119 GM BTL PO SCH (13:41)
--- NOTE | 2018-08-09 18:23 | PATH ---
Surgical Pathology Report Patient Name: SNEHA SINGLETARY Med. Rec. #: [id number] /Age/Gender: 1935 (Age: 83) / F Account: [id number] Location: [facility] MED/SURG Taken: 08/08/2018 Received: 08/08/2018 Reported: 08/09/2018 Physicians: MD Tara Mast M.D. Specimen(s) Received BX STOMACH Clinical History Vomiting, anemia Postoperative diagnosis: Gastric ulcer, large hiatal hernia Final Diagnosis STOMACH, BIOPSY: GASTRIC MUCOSA WITH CHRONIC GASTRITIS. IMMUNOSTAIN FOR H. PYLORI IS NEGATIVE. NEGATIVE FOR INTESTINAL METAPLASIA. Electronically Signed Silvano Beckham M.D. Gross Description Received in formalin, labeled "biopsy stomach" are 3 baumann, irregular portions of soft tissue ranging from 0.2-0.3 cm. in greatest dimension. The specimens are submitted in toto in one cassette. /08/08/2018 [facility]08/08/2018
[2018-08-09] MEDS: MONTELUKAST NA 10 MG TABLET PO SCH (21:08)
[2018-08-10] MEDS ORDERED: diphenhydrAMINE HCL 12.5 MG/5 ML UNIT-DOSE CUPS PO ONE ×2 (03:32)
[2018-08-10] MEDS: LEVOTHYROXINE NA 50 MCG TABLET (FP) PO SCH (06:21)
[2018-08-10] MEDS: dilTIAZem HCL 30 MG TABLET (FP) PO SCH ×2 (06:21→12:51)
[2018-08-10 06:29] LABS: HEMATOCRIT 29.4 % (32.4-45.2); HEMOGLOBIN 9.5 GM/dL (10.7-15.3); MCH 24.6 pg (25.7-33.7); MCHC 32.4 g/dl (32.0-36.0); MEAN PLT VOLUME 7.7 fl (7.5-11.1); PLATELET COUNT 326 K/MM3 (134-434); RBC 3.87 M/mm3 (3.60-5.2); RDW 16.1 % (11.6-15.6); WHITE BLOOD COUNT 5.3 K/mm3 (4.0-10.0)
[2018-08-10 06:55] LABS: BLOOD UREA NITROGEN 17.8 mg/dL (7-18); CALCIUM 9.2 mg/dL (8.5-10.1); CREATININE 1.3 mg/dL (0.55-1.3); POTASSIUM 4.1 mmol/L (3.5-5.1)
[2018-08-10 06:59] LABS: ALBUMIN 2.7 g/dl (3.4-5.0); BILIRUBIN,DIRECT 0.1 mg/dL (0.0-0.2); BILIRUBIN,TOTAL 0.6 mg/dL (0.2-1); TOT PROT 5.9 g/dl (6.4-8.2)
[2018-08-10] MEDS ORDERED: MEROPENEM 1 GM VIAL (RESTRICTED TO ID) IVPB ONE ×2 (09:22)
[2018-08-10] MEDS ORDERED: DEXTROSE 5%-WATER 100 ML IVPB ONE ×2 (09:22)
[2018-08-10] MEDS: DOCUSATE SODIUM 100 MG CAPSULE (FP) PO SCH (09:58)
[2018-08-10] MEDS: CHOLECALCIFEROL (VIT D3) 1,000 UNIT (25 MCG) TABLET PO SCH (09:58)
[2018-08-10] MEDS: FERROUS SO4 325 MG TABLET (FP) PO SCH (09:59)
[2018-08-10] MEDS: PANTOPRAZOLE 40 MG TABLET (FP) PO SCH (09:59)
[2018-08-10] MEDS: CALCIUM 500MG/VIT-D 200 UNITS COMBO TABLET (FP) PO SCH (09:59)
[2018-08-10] MEDS: ASCORBIC ACID 500 MG TABLET (FP) PO SCH (09:59)
[2018-08-10] MEDS: MEROPENEM 1 GM in DEXTROSE 5%-WATER 100 ML IVPB SCH (10:00)
[2018-08-10] MEDS: POLYETHYLENE GLYCOL 3350 119 GM BTL PO SCH (10:01)
--- NOTE | 2018-08-10 12:07 | PN ---
Progress Note, Physician History of Present Illness: stable doing well no issues - Current Medication List Current Medications: Active Medications Artificial Tears (Artificial Tears) 1 drop OU PRN PRN PRN Reason: DRY EYES Ascorbic Acid (Vitamin C -) 500 mg PO DAILY [facility] Last Admin: 08/10/18 09:59 Dose: 500 mg Calcium Carbonate/Cholecalciferol (Os-Brett 500+D -) 1 tab PO DAILY [facility] Last Admin: 08/10/18 09:59 Dose: 1 tab Cholecalciferol (Vitamin D3 -) 1,000 unit PO DAILY [facility] Last Admin: 08/10/18 09:58 Dose: 1,000 unit Diltiazem HCl (Cardizem -) 30 mg PO Q6HPO [facility] Last Admin: 08/10/18 06:21 Dose: 30 mg Docusate Sodium (Colace -) 200 mg PO DAILY [facility] Last Admin: 08/10/18 09:58 Dose: 200 mg Ferrous Sulfate (Feosol -) 325 mg PO DAILY [facility] Last Admin: 08/10/18 09:59 Dose: 325 mg Meropenem 1 gm/ Dextrose 100 mls @ 200 mls/hr IVPB BID [facility] Last Admin: 08/10/18 10:00 Dose: 200 mls/hr Levothyroxine Sodium (Synthroid -) 50 mcg PO DAILY@0700 [facility] Last Admin: 08/10/18 06:21 Dose: 50 mcg Montelukast Sodium (Singulair -) 10 mg PO HS [facility] Last Admin: 08/09/18 21:08 Dose: 10 mg Pantoprazole Sodium (Protonix -) 40 mg PO DAILY [facility] Last Admin: 08/10/18 09:59 Dose: 40 mg Polyethylene Glycol (Miralax (For Daily Use) -) 17 gm PO DAILY [facility] Last Admin: 08/10/18 10:01 Dose: 17 gm - Objective Vital Signs: Vital Signs Temperature 97.8 F 08/10/18 06:54 Pulse Rate 72 08/10/18 06:54 Respiratory Rate 20 08/10/18 06:54 Blood Pressure 152/74 08/10/18 06:54 O2 Sat by Pulse Oximetry (%) 96 08/08/18 12:58 Constitutional: Yes: No Distress, Calm Cardiovascular: Yes: S1, S2 Respiratory: Yes: Regular, CTA Bilaterally Gastrointestinal: Yes: Normal Bowel Sounds, Soft Musculoskeletal: Yes: WNL Extremities: Yes: WNL Neurological: Yes: Alert, Oriented Psychiatric: Yes: Alert, Oriented Labs: CBC, BMP 08/10/18 05:40 08/10/18 05:40 INR, PTT INR 1.08 (0.83-1.09) 08/06/18 01:33 Assessment/Plan Problem List - Problems (1) Afib Code(s): I48.91 - UNSPECIFIED ATRIAL FIBRILLATION Qualifiers: Atrial fibrillation type: paroxysmal Qualified Code(s): I48.0 - Paroxysmal atrial fibrillation (2) Anemia Code(s): D64.9 - ANEMIA, UNSPECIFIED Qualifiers: Anemia type: other cause Other causes of anemia: acute posthemorrhagic Qualified Code(s): D62 - Acute posthemorrhagic anemia (3) Diabetes Code(s): E11.9 - TYPE 2 DIABETES MELLITUS WITHOUT COMPLICATIONS (4) Hypothyroid Code(s): E03.9 - HYPOTHYROIDISM, UNSPECIFIED (5) UTI (urinary tract infection) Code(s): N39.0 - URINARY TRACT INFECTION, SITE NOT SPECIFIED Assessment/Plan UTI ESBL + Anemia r/o Occult GIB AFIB DM hypothyroidism Mild dementia plan can stop abx after the afternoon dose today rest as per the team
--- NOTE | 2018-08-10 12:10 | PN ---
Physical Exam: SUBJECTIVE: Patient seen and examined, no complaints, denies any abdominal pain or urinary symptoms. No dark or bloody stools, tolerating diet well. OBJECTIVE: Vital Signs Period Temp Pulse Resp BP Sys/Castro Pulse Ox Last 24 Hr 97.8 F-98.6 F 68-72 20-20 123-152/55-74 Intake & Output 08/07/18 08/08/18 08/09/18 08/10/18 23:59 23:59 23:59 23:59 Intake Total 2515 1274 1420 Balance 2515 1274 1420 GENERAL: sitting in bed in no acute distress Chest: decreased effort, no rales or wheezing neck: soft, supple, no JVD Abdomen:soft, NT throughout, neg benedict's sign, no voluntary or involuntary guarding or rigidity, pos bowel sounds Extremities: no edema Psych: pleasant, co-operative Laboratory Results - last 24 hr 08/09/18 08/09/18 08/10/18 18:04 23:27 05:40 WBC 5.3 RBC 3.87 Hgb 9.5 L Hct 29.4 L MCV 76.0 L MCH 24.6 L MCHC 32.4 RDW 16.1 H Plt Count 326 MPV 7.7 Sodium Potassium Chloride Carbon Dioxide Anion Gap BUN Creatinine Est GFR (CKD-EPI)AfAm Est GFR (CKD-EPI)NonAf POC Glucometer 90 93 Random Glucose Calcium Total Bilirubin Direct Bilirubin AST ALT Alkaline Phosphatase Total Protein Albumin 08/10/18 08/10/18 08/10/18 05:40 05:40 06:16 WBC RBC Hgb Hct MCV MCH MCHC RDW Plt Count MPV Sodium 140 Potassium 4.1 Chloride 106 Carbon Dioxide 28 Anion Gap 6 L BUN 17.8 Creatinine 1.3 Est GFR (CKD-EPI)AfAm 43.63 Est GFR (CKD-EPI)NonAf 37.64 POC Glucometer 90 Random Glucose 78 Calcium 9.2 Total Bilirubin 0.6 Direct Bilirubin 0.1 AST 133 H ALT 185 H Alkaline Phosphatase 88 Total Protein 5.9 L Albumin 2.7 L Active Medications Generic Name Dose Route Start Last Admin Trade Name Freq PRN Reason Stop Dose Admin Artificial Tears 1 drop 08/06/18 04:30 Artificial Tears OU PRN PRN DRY EYES Ascorbic Acid 500 mg 08/06/18 10:00 08/10/18 09:59 Vitamin C - PO 500 mg DAILY DALE Administration Calcium Carbonate/Cholecalciferol 1 tab 08/06/18 10:00 08/10/18 09:59 Os-Brett 500+D - PO 1 tab DAILY DALE Administration Cholecalciferol 1,000 unit 08/06/18 10:00 08/10/18 09:58 Vitamin D3 - PO 1,000 unit DAILY DALE Administration Diltiazem HCl 30 mg 08/06/18 06:00 08/10/18 06:21 Cardizem - PO 30 mg Q6HPO DALE Administration Docusate Sodium 200 mg 08/06/18 10:00 08/10/18 09:58 Colace - PO 200 mg DAILY DALE Administration Ferrous Sulfate 325 mg 08/06/18 10:00 08/10/18 09:59 Feosol - PO 325 mg DAILY DALE Administration Meropenem 1 gm/ Dextrose 100 mls @ 200 mls/hr 08/06/18 23:00 08/10/18 10:00 IVPB 200 mls/hr BID DALE Administration Levothyroxine Sodium 50 mcg 08/06/18 07:00 08/10/18 06:21 Synthroid - PO 50 mcg DAILY@0700 DALE Administration Montelukast Sodium 10 mg 08/06/18 22:00 08/09/18 21:08 Singulair - PO 10 mg HS DALE Administration Pantoprazole Sodium 40 mg 08/09/18 10:00 08/10/18 09:59 Protonix - PO 40 mg DAILY DALE Administration Polyethylene Glycol 17 gm 08/09/18 12:30 08/10/18 10:01 Miralax (For Daily Use) - PO 17 gm DAILY DALE Administration Abdominal US results noted. ASSESSMENT/PLAN: 83 yof with PMHx of UTI, AFIB, iron deficiency anemia, T2DM, hypothyroidism, Normal pressure hydrocephalus, and a stage 1 Sacral ulcer, recently being treated for ESBL UTI with meropenem, admitted with 3 episodes of vomiting and Hb 7.5 -Acute on chronc severe iron deficiency anemia, -Clean based antral ulcer/PUD -Large Hiatal hernia -?Stercoral colitis with fecal impaction/retention -Complex ovarian cysts -Afib, not on AC -Recent ESBL UTI on meropenem -Hypothyroidism -NPH -Stage I sacral ulcer Plan: EGD noted, Continue PPI, PO as tolerated. Follow up biopsies. Avoid NSAIDs. Appropriate response to PRBC. Start miralax, aggressive bowel regimen given CT findings. LFTs improved, not suggestive of obstructive picture. TOlerating diet well, no abdominal symptoms or concerning findings. Follow up hep panel. Abdominal US results noted, discussed with Dr. Olmedo, follow up final recs. Would lean towards conservative management given improved LFTs and asymptomatic. Discussed with Dr. Powell, patient seen by him as discussed. Advise CA-125 and outpatient follow up. Imaging with some hydro concerns, renal function stable, no evidence of retention inhouse. 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 ID input noted. Called [facility], patient planned for 10 days of meropenem from 08/06, getting through the IV. Plan to finish determined outpatient course. continue levothyroxine/diltiazem. DVTPPX SCDs Dispo to SNF later today or tomorrow pending GI input and clinical improvement. Discussed with patient, nursing and CM, all questions answered. Visit type - Emergency Visit Emergency Visit: Yes ED Registration Date: 08/06/18 Care time: The patient presented to the Emergency Department on the above date and was hospitalized for further evaluation of their emergent condition. - New Patient This patient is new to me today: No - Critical Care Critical Care patient: No - Discharge Referral Referred to [facility] Med [facility].C[facility] No
--- NOTE | 2018-08-10 12:36 | DS ---
Physical Exam: SUBJECTIVE: Patient seen and examined, denies any nausea, vomiting, abdominal pain, back pain or concerns. Tolerating diet well. No urinary symptoms. OBJECTIVE: Vital Signs Period Temp Pulse Resp BP Sys/Castro Pulse Ox Last 24 Hr 97.8 F-98.6 F 68-72 20-20 123-152/55-74 Intake & Output 08/07/18 08/08/18 08/09/18 08/10/18 23:59 23:59 23:59 23:59 Intake Total 2515 1274 1420 Balance 2515 1274 1420 PHYSICAL EXAM GENERAL: pos pallor, sitting in bed in no acute distress neck: soft, supple, no JVD HEENT: pallor Chest: decreased effort, no rales or wheezing Abdomen:Soft, NT throughout, ND, pos bowel sounds, no suprapubic or CVA tenderness Extremities: no edema psych: pleasant, co-operative LABS Laboratory Results - last 24 hr 08/09/18 08/09/18 08/10/18 18:04 23:27 05:40 WBC 5.3 RBC 3.87 Hgb 9.5 L Hct 29.4 L MCV 76.0 L MCH 24.6 L MCHC 32.4 RDW 16.1 H Plt Count 326 MPV 7.7 Sodium Potassium Chloride Carbon Dioxide Anion Gap BUN Creatinine Est GFR (CKD-EPI)AfAm Est GFR (CKD-EPI)NonAf POC Glucometer 90 93 Random Glucose Calcium Total Bilirubin Direct Bilirubin AST ALT Alkaline Phosphatase Total Protein Albumin 08/10/18 08/10/18 08/10/18 05:40 05:40 06:16 WBC RBC Hgb Hct MCV MCH MCHC RDW Plt Count MPV Sodium 140 Potassium 4.1 Chloride 106 Carbon Dioxide 28 Anion Gap 6 L BUN 17.8 Creatinine 1.3 Est GFR (CKD-EPI)AfAm 43.63 Est GFR (CKD-EPI)NonAf 37.64 POC Glucometer 90 Random Glucose 78 Calcium 9.2 Total Bilirubin 0.6 Direct Bilirubin 0.1 AST 133 H ALT 185 H Alkaline Phosphatase 88 Total Protein 5.9 L Albumin 2.7 L Microbiology 08/06/18 02:05 Urine - Urine Clean Catch Urine Culture - Final NO GROWTH OBTAINED CT A/P: There is no evidence of pneumoperitoneum, free intraperitoneal fluid or bowel obstruction. Prominent rectal fecal retention/impaction is noted with resultant ventral displacement of the uterus as well as mild to moderate partial effacement of the urinary bladder. There is associated mild concentric rectal wall thickening as well as mild presacral soft tissue edema which could be on the basis of stercoral colitis. No hydronephrosis is identified. There is marked left renal atrophy (5.7 cm in length). The right kidney appears unremarkable in size. Several simple right renal cortical cyst are noted. Note is also made of a 0.8 cm right renal cortical density laterally probably representing an incidental cyst with proteinaceous or hemorrhagic debris and less likely a solid nodule. The liver, spleen, pancreas, and adrenal glands demonstrate no discrete noncontrast pathology. There is no aortic aneurysm. No definite lymphadenopathy is seen on the basis of CT size criteria. Moderate to large hiatal hernia. The appendix is not definitely visualized however there are no indirect CT signs of acute appendicitis. No evidence of acute diverticulitis. 7.7 cm and 4.3 cm left ovarian cysts as well as a 4.5 cm right ovarian cyst are noted. The right ovarian cyst demonstrates mildly increased intraluminal density may be on the basis of debris or blood products. A mild to moderate T12 vertebral body compression fracture is seen with minimal bony retropulsion. This fracture appears to be chronic in nature. Prominent multilevel lumbar degenerative disc changes are noted. Mild lumbar levoscoliosis. Status post left hip ORIF. There is partial imaging of right lower lobe discoid atelectasis/scarring. IMPRESSION: Prominent rectal fecal retention/impaction is noted. There is possible associated stercoral colitis. Marked left renal atrophy. A 0.8 cm right renal cortical mildly hyperdense focus is seen probably representing an incidental benign cyst, less likely a solid nodule. Correlate with sonography. Large bilateral ovarian cysts are noted. The right ovarian cyst demonstrates mildly increased intraluminal density probably on the basis of debris or blood products and less likely representing a solid lesion. Correlation with sonography is suggested. Mild to moderate T12 vertebral body compression fracture which appears chronic. Status post left hip ORIF. Pelvic/Bladder US: PELVIC ULTRASOUND Clinical information given: right ovarian cyst The exam was performed utilizing transabdominal scanning. The ultrasound exam is correlated with CT performed earlier the same date. The right ovary demonstrates an approximately 5 x 5 x 3.4 cm cyst containing several thickened internal septations. Several left ovarian cysts are noted the most prominent measuring approximately 8.7 x 7 x 5 cm. Thickened internal septations are also seen within this latter cyst. No free intraperitoneal fluid is seen. Postmenopausal uterine atrophy is noted. Endometrial thickness appears unremarkable measuring 0.2 cm. The urinary bladder volume at the time of examination is approximately 250 mL. As per the chemistry technologist staff the patient was unable to void at the time of examination. No obvious urinary bladder mass lesion or calculus is identified within the limitations of sonography. IMPRESSION: Large complex bilateral ovarian cysts are noted as discussed above. SUPPORT ARCHITECT consultation is suggested. The urinary bladder volume at the time of the exam is approximately 250 mL. The patient was apparently unable to void at the time of examination - ? Due to confusion (versus retention Right upper abdomen ultrasound. The liver measures 13.2 cm in sagittal length with a slightly dense echotexture. Gallbladder is adequately distended with intraluminal stones and without wall thickening or pericholecystic free fluid. No intrahepatic bile duct dilatation seen. Common bile but measures 7 mm in diameter. The right kidney measures 10.2 cm sagittal length with an exophytic upper pole simple cyst measuring 3.7 x 2.3 cm. There is minimal fullness of the right renal pelvicalyceal system. Nonvisualization of the pancreas likely due to overlying bowel gas. Visualized portion of the proximal abdominal aorta and inferior vena cava appear unremarkable. Normal flow in the main portal vein. IMPRESSION: Gallstones without sonographic evidence of acute cholecystitis. Minimal dilatation of the common bile duct measuring 7 mm in diameter that could still be within normal limits for the patient's age. No intrahepatic bile duct dilatation is present. Fatty infiltration of the liver versus hepatocellular disease. Please correlate with liver enzymes. Nonvisualization of the pancreas. Exophytic right renal upper pole simple cyst measuring 3.3 cm. There is also mild dilatation of the right renal pelvicalyceal system and visualized portion of the proximal right ureter HOSPITAL COURSE: Date of Admission:08/06/18 Date of Discharge: 08/10/18 Minutes to complete discharge: 40 Discharge Summary Reason For Visit: ANEMIA/OCCULT BLOOD IN STOOLS Current Active Problems Abnormal liver enzymes (Acute) Afib (Acute) Anemia (Acute) Diabetes (Acute) Hypothyroid (Acute) Occult GI bleeding (Acute) Ovarian cyst (Acute) UTI (urinary tract infection) (Acute) Hospital Course: 83 yof with PMHx of UTI, AFIB, iron deficiency anemia, T2DM, hypothyroidism, Normal pressure hydrocephalus, and a stage 1 Sacral ulcer, recently being treated for ESBL UTI with meropenem, admitted with 3 episodes of vomiting and Hb 7.5. She was FOBT positive. GI was consulted, she had EDG with large hiatal hernia and clean based antral ulcer, which is the likely etiology of her iron deficiency anemia. Her biopsy results including H. pylori are currently pending and she will need treatment for H. pylori if positive. She declined colonoscopy. She received 2 units PRBC with appropriate response and no gross evidence of bleed or hemodynamic instability. She had AST/ALT elevation that improved. Her hepatitis panel is currently pending. She had abdominal US, as above, with mild 7 mm CBD dilatation. She declined further testing including MRCP. Her LFTs have improved, she has no abdominal symptoms, has been tolerating diet well. She was also noted with incidental finding of complex ovarian cyst with mild hydronephrosis. She was seen by Dr. Vázquez, her CA 125 is pending and she is advised outpatient follow up. Her CT A/P also raised concerns for stercoral colitis with constipation, she was maintained on aggressive bowel regimen. She will be discharged in stable condition with outpatient GI and Animal Pathologist follow up , if interested. Her EGD biopsy, H. Pylori, CA 125 and hepatitis panel are currently pending. She was continued on her home regimen of meropenem, per discussion with her fpc, she is planned for 10 days from 08/06/2018 which she will continue to receive via peripheral line as discussed with ID. Condition: Stable - Instructions Diet, Activity, Other Instructions: You were admitted with anemia, occult blood stool was positive. You had EGD showing large hiatal hernia and antral ulcer, likely reason for your anemia. Your biopsies were taken, results are pending. You declined colonscopy. You were also noted with constipation. You were continued on your meropenem from the fpc You were also found with complex ovarian cyst and seen by supply chain technician Dr. Vázquez, blood work CA-125 has been sent. You are advised to follow up with him in 1 week to discuss results and further testing. MEDICATIONS: Start protonix 40 mg daily and continue till further advised Continue with your meropenem course as directed by the fpc from prior to admission (No changes in dosing or regimen have been made in the hospital) Continue other medications as before Avoid NSAIDs INSTRUCTIONS: Avoid NSAIDs Avoid eating 2 hours before going to bed, keep head end of bed elevated,small meals at frequent intervals. Avoid alcohol, caffeine. Aggressive bowel regimen to treat and avoid constipation. You will need monitoring of your liver tests. PENDING LABS: EGD biopsy results including H. Pylori CA-125 results Hepatitis panel FOLLOW UP: CBC, BMP, LFTs in 1 week at the nursing. With powerhouse helper Dr. Souza in 1-2 weeks to discuss EGD biopsy/H. Pylori results and further testing if interested. PLEASE NOTE THAT IF YOUR EGD BIOPSY RESULTS ARE POSITIVE FOR H. PYLORI, YOU WILL NEED TREATMENT. PLEASE HAVE YOUR DOCTOR AT THE NURSING FOLLOW UP ON THE RESULTS IN 1 WEEK. With supply chain technician Dr. Vázquez in 1 week to discuss CA-125 results and further testing for your complex ovarian cyst. (please note that the cyst may continue to enlarge and can cause bleeding, blockage of your kidneys, infection and even if left untreated) Also you were noted with abnormal LFTs and can discuss with your doctor outpatient MRI of your belly if interested. you currently declined any additional testing in the hospital. If you notice any new fevers, chills, pain, inability to urinate, jaundice, or any new concerns, call 911 or come to ED. Referrals: Capo Kramer DO [Staff Physician] - 1 Week Pipe Vázquez MD [Staff Physician] - 1 Week Disposition: CUSTODIAL FACILITY - Home Medications Comprehensive Discharge Medication List: Ambulatory Orders Acetaminophen 325 mg PO PRN 08/06/18 Ascorbic Acid [Vitamin C -] 500 mg PO DAILY 08/06/18 Calcium Carbonate/Vitamin D3 [Oyster Shell 500-Vit D3 200 Tb] 1 each PO DAILY Cholecalciferol (Vitamin D3) [Vitamin D3] 1,000 unit PO DAILY 08/06/18 Dextran 70/Hypromellose/Pf [Artificial Tears Drops] 1 each OP PRN 08/06/18 Diltiazem [Cardizem -] 30 mg PO QID 08/06/18 Docusate Sodium 200 mg PO DAILY 08/06/18 Ferrous Sulfate 325 mg PO DAILY 08/06/18 Levothyroxine [Synthroid -] 50 mcg PO DAILY 08/06/18 Meropenem-0.9% Sodium Chloride [Meropenem-0.9% NaCl 1 Gram/50] 1 gm IV BID 08/06 Montelukast Sodium [Singulair] 10 mg PO DAILY 08/06/18 Pantoprazole Sodium [Protonix -] 40 mg PO DAILY #30 tablet.ec 08/10/18 Polyethylene Glycol 3350 [Miralax 119 gm Btl -] 17 gm PO DAILY bottle 08/10/18 This patient is new to me today: No Emergency Visit: Yes ED Registration Date: 08/06/18 Care time: The patient presented to the Emergency Department on the above date and was hospitalized for further evaluation of their emergent condition. Critical Care patient: No - Discharge Referral Referred to [facility] No
--- NOTE | 2018-08-10 12:42 | PN.GI ---
GI Progress Note Subjective: Pt feeling well, denies abdominal pain, n/v. Tolerating diet. - Objective Vital Signs: Vital Signs Temperature 97.8 F 08/10/18 06:54 Pulse Rate 72 08/10/18 06:54 Respiratory Rate 20 08/10/18 06:54 Blood Pressure 152/74 08/10/18 06:54 O2 Sat by Pulse Oximetry (%) 96 08/08/18 12:58 Constitutional: Well Nourished, No Distress, Calm Cardiovascular: Yes: WNL, Regular Rate and Rhythm Respiratory: Yes: WNL, Regular, CTA Bilaterally ...Palpate: Yes: Other (Abd soft, nt, nd) Labs: CBC, BMP 08/10/18 05:40 08/10/18 05:40 INR, PTT INR 1.08 (0.83-1.09) 08/06/18 01:33 Assessment/Plan 83yo female with iron deficiency anemia s/p EGD revealing antral ulcer and hiatal hernia. No overt bleeding. 1. Iron deficiency anemia: -EGD revealing antral ulcer and hiatal hernia. Pathology negative for H pylori -PPI daily -Again discussed risks/benefits of colonoscopy for complete workup and potential for missed lesions if not pursued. Pt continues to refuse. 2. Elevated transaminases, no prior labs to compare, unclear exact etiology possibly medication induced, cannot exclude passed stone. US revealing gallstones and possible minimal CBD dilation. T bili normal. Transaminases improving. -While low suspicion for biliary obstructive process in setting of downtrending LFTs with normal bili, discussed MRCP for further evaluation. Pt refusing additional testing at this time. Potential for missed lesions and risk of biliary obstruction (though low suspicion) was discussed. -If dc planning recommend repeat LFTs in 3-4 days to ensure normalization -Outpatient GI follow up if pt agreeable Discussed with medicine attending
[2018-08-10 17:15] VITALS: BP 124/64; PULSE 69; TEMP 99
--- NOTE | 2018-08-11 11:22 | CONS ---
DATE OF CONSULTATION: 08/09/2018 REASON FOR CONSULTATION: Bilateral ovarian cysts. CONSULTATION: Patient is a poor historian from the [facility] who is an 83-year-old female with significant past medical history of chronic UTI and incontinence, atrial fibrillation, iron deficiency anemia, and hypothyroidism, and normal pressure hydrocephalus, and sacral ulcer. She was admitted with a hemoglobin of 7.55. On CAT scan of the abdomen and pelvis, showed that there was a 7.7 cm x 4.3 cm left ovarian cyst and a 4.5-cm right ovarian cyst were noted. There is no ascites and no pelvic lymphadenopathy. Her pelvic sonogram also showed that there were bilateral ovarian cysts and confirmed finding on the CT scan. The patient at this time is asymptomatic. No pain. No vaginal bleeding. 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 PHYSICAL EXAMINATION: General: Patient is comfortable. Abdomen: Soft and nontender. No masses were palpable. No ascites. No CVA. Pelvic: Difficult exam to do on a bed. External genitalia was normal. Rectum was full of feces and obscuring the vaginal vault because she is a and no history of past sexual activity. Examination very difficult to establish because patient is uncomfortable, but no pelvic masses were found on clinical exam. IMPRESSION: 1. Unsatisfactory examination secondary to patient habitus and discomfort. 2. Bilateral ovarian cysts. PLAN: Will do CA-125 to determine any neoplasm, and then we will recommend followup. Patient was informed of the findings. Emiliano [id number]
[2018-08-11 19:12] LABS: HEP A AB, IGM Negative (Negative); HEP B CORE AB, TOT Negative (Negative)
== END 2018-08-10 17:59 | DRG 812 ==
LOC: JER 23:37 → JERBED 08-06 02:34 → J8W 08-06 06:07
PROVIDERS: ADMIT Internal Medicine; ATTEND Hospitalist
PROC: 30233N1 Transfusion of Nonautologous Red Blood Cells into Peripheral Vein, Percutaneous Approach (ICD-10-PCS; 2018-08-06)
PROC: 0DB68ZX Excision of Stomach, Via Natural or Artificial Opening Endoscopic, Diagnostic (ICD-10-PCS; principal; 2018-08-08 11:30)
DX: D50.9 Iron deficiency anemia, unspecified (principal); G91.2 (Idiopathic) normal pressure hydrocephalus; N39.0 Urinary tract infection, site not specified; K25.9 Gastric ulcer, unspecified as acute or chronic, without hemorrhage or perforation; D62 Acute posthemorrhagic anemia; I48.0 Paroxysmal atrial fibrillation; N83.201 Unspecified ovarian cyst, right side; K44.9 Diaphragmatic hernia without obstruction or gangrene; R74.0 Nonspecific elevation of levels of transaminase and lactic acid dehydrogenase [LDH]; K29.50 Unspecified chronic gastritis without bleeding; E03.9 Hypothyroidism, unspecified; Z16.12 Extended spectrum beta lactamase (ESBL) resistance; F03.90 Unspecified dementia, unspecified severity, without behavioral disturbance, psychotic disturbance, mood disturbance, and anxiety; L89.151 Pressure ulcer of sacral region, stage 1
CPT/HCPCS: 36415; 36430; 36511; 71045-TC-FY; 74176-TC; 76705-TC; 76775-TC; 76856-TC; 80048; 80053; 80076; 81003; 82272; 82550; 82728; 82962; 83540; 83550; 83615; 83735; 84100; 84443; 84484; 85025; 85027; 85044; 85610; 86304; 86704; 86706; 86707; 86708; 86709; 86803; 86850; 86900; 86901; 86922; 87086; 87340; 88305-TC; 93005; 93010; 99283-25; J7030; P9038; P9058